=== PATIENT | female | born 1935 | race American Indian/Alaskan Native ===

== ENCOUNTER 2019-04-18 10:38 | Outpatient (CLI) | payer MEDICARE ==
--- NOTE | 2019-04-18 14:14 | Ultrasound Report ---
ULTRASOUND RENAL BILATERAL HISTORY: Left flank pain. TECHNIQUE: transabdominal ultrasound with color Doppler interrogation. FINDINGS: The right kidney measures 9.7 x 3.3 x 3.7cm. Right renal cortex: 1.3cm. The left kidney measures 10.2 x 4.0 x 4.9cm. Left renal cortex: 1.4cm. Scans of the kidneys show normal renal contours. There is normal central calyceal clustering and good preservation of the cortical thickness. There is no evidence of mass or hydronephrosis. The views of the bladder and the region of the ureters appear normal. IMPRESSION: Unremarkable renal ultrasound.
== END 2019-04-18 10:39 | disposition home or self-care (01) ==
LOC: US 10:38
PROVIDERS: ATTEND Internal Medicine Nephrology
DX: R10.9 Unspecified abdominal pain (principal); I10 Essential (primary) hypertension
CPT/HCPCS: 76770

== ENCOUNTER 2019-12-27 06:54 | Observation (INO) | payer MEDICARE ==
[2019-12-27 08:12] LABS: Basophils # (Auto) 0.1 K/mm3 (0.0-0.1); Basophils % (Auto) 1.2 % (0.0-1.8); Eosinophils # (Auto) 0.1 K/mm3 (0.0-0.4); Eosinophils % (Auto) 1.9 % (0.0-4.3); Hematocrit 40.6 % (30.3-42.9); Hemoglobin 13.3 gm/dl (10.1-14.3); Lymphocytes # (Auto) 1.1 K/mm3 (1.2-5.4); Lymphocytes % (Auto) 24.4 % (13.4-35.0); Mean Corpuscular HGB Conc 33 % (30-34); Mean Corpuscular Volume 75 fl (79-97); Monocytes # (Auto) 0.4 K/mm3 (0.0-0.8); Monocytes % (Auto) 8.3 % (0.0-7.3); Platelet Count 158 K/mm3 (140-440); Red Blood Count 5.41 M/mm3 (3.65-5.03)
[2019-12-27 08:23] LABS: INR 1.09 (0.87-1.13)
[2019-12-27 08:34] LABS: BUN/Creatinine Ratio 15; Blood Urea Nitrogen 12 mg/dL (7-17); Calcium 9.7 mg/dL (8.4-10.2); Hemolysis Index 8
[2019-12-27 08:56] LABS: Bacteria,Urine 1+ /HPF (Negative); Bilirubin,Urine NEG (Negative); Blood,Urine NEG (Negative); Color,Urine Yellow (Yellow); Protein,Urine <15 mg/dL mg/dL (Negative); Urobilinogen,Urine < 2.0 mg/dL (<2.0)
--- NOTE | 2019-12-27 10:15 | Emergency Department Report ---
ED General Adult HPI - General Chief complaint: Weakness Stated complaint: GENERAL WEAKNESS Time Seen by Provider: 12/27/19 09:26 Source: patient, EMS Mode of arrival: Stretcher Limitations: No Limitations - History of Present Illness Initial comments: Patient presents to the emergency department with a chief complaint of right facial numbness and tingling that started this morning. Patient states his symptoms started approximately 8:00 this morning and have now resolved. Patient denies chest pain, cyanosis, or headaches. Patient also denies facial droop, slurred speech -: Sudden Severity scale (0 -10): 0 Consistency: now resolved Improves with: none Worsens with: none Associated Symptoms: denies other symptoms Treatments Prior to Arrival: none - Related Data Home Medications Medication Instructions Recorded Confirmed Last Taken FLUoxetine [PROzac] 10 mg PO QDAY 03/27/16 03/27/16 Unknown risperiDONE [RisperDAL] 1 tab PO QHS 03/27/16 03/27/16 Unknown Allergies Allergy/AdvReac Type Severity Reaction Status Date / Time No Known Allergies Allergy Unverified 03/27/16 12:58 ED Review of Systems ROS: Stated complaint: GENERAL WEAKNESS Other details as noted in HPI Comment: All other systems reviewed and negative Constitutional: denies: chills, fever Eyes: denies: eye pain, eye discharge, vision change ENT: denies: ear pain, throat pain Respiratory: denies: cough, shortness of breath, wheezing Cardiovascular: denies: chest pain, palpitations Endocrine: no symptoms reported Gastrointestinal: denies: abdominal pain, nausea, diarrhea Genitourinary: denies: urgency, dysuria, discharge Musculoskeletal: denies: back pain, joint swelling, arthralgia Skin: denies: rash, lesions Neurological: numbness. denies: headache, weakness, paresthesias Psychiatric: denies: anxiety, depression Hematological/Lymphatic: denies: easy bleeding, easy bruising ED Past Medical Hx - Past Medical History Previous Medical History?: Yes Hx Hypertension: Yes Hx Psychiatric Treatment: Yes (Anxiety) - Surgical History Past Surgical History?: No - Social History Smoking Status: Never Smoker Substance Use Type: None - Medications Home Medications: Home Medications Medication Instructions Recorded Confirmed Last Taken Type FLUoxetine [PROzac] 10 mg PO QDAY 03/27/16 03/27/16 Unknown History risperiDONE [RisperDAL] 1 tab PO QHS 03/27/16 03/27/16 Unknown History ED Physical Exam - General Limitations: No Limitations General appearance: alert, in no apparent distress - Head Head exam: Present: atraumatic, normocephalic - Eye Eye exam: Present: normal appearance, PERRL, EOMI - ENT ENT exam: Present: mucous membranes moist - Neck Neck exam: Present: normal inspection - Respiratory Respiratory exam: Present: normal lung sounds bilaterally. Absent: respiratory distress - Cardiovascular Cardiovascular Exam: Present: regular rate, normal rhythm. Absent: systolic murmur, diastolic murmur, rubs, gallop - GI/Abdominal GI/Abdominal exam: Present: soft, normal bowel sounds. Absent: distended, tenderness - Extremities Exam Extremities exam: Present: normal inspection - Back Exam Back exam: Present: normal inspection - Neurological Exam Neurological exam: Present: alert, oriented X3, CN II-XII intact. Absent: motor sensory deficit - Psychiatric Psychiatric exam: Present: normal affect, normal mood - Skin Skin exam: Present: warm, dry, intact, normal color. Absent: rash ED Course Vital Signs 12/27/19 12/27/19 12/27/19 07:42 09:30 11:56 Temperature 98.9 F 98.4 F Pulse Rate 59 L 56 L 54 L Respiratory 16 16 16 Rate Blood Pressure 164/81 Blood Pressure 168/73 157/53 [Right] O2 Sat by Pulse 99 98 100 Oximetry 12/27/19 12/27/19 13:00 14:00 Temperature 98.8 F Pulse Rate 75 66 Respiratory 16 16 Rate Blood Pressure Blood Pressure 141/64 115/50 [Right] O2 Sat by Pulse 100 100 Oximetry ED Medical Decision Making - Lab Data Result diagrams: 12/27/19 07:54 12/27/19 07:54 Lab Results 12/27/19 12/27/19 12/27/19 Range/Units 07:54 07:54 07:54 WBC 4.7 (4.5-11.0) K/mm3 RBC 5.41 H (3.65-5.03) M/mm3 Hgb 13.3 (10.1-14.3) gm/dl Hct 40.6 (30.3-42.9) % MCV 75 L (79-97) fl MCH 25 L (28-32) pg MCHC 33 (30-34) % RDW 15.0 (13.2-15.2) % Plt Count 158 (140-440) K/mm3 Lymph % (Auto) 24.4 (13.4-35.0) % [place] % (Auto) 8.3 H (0.0-7.3) % Eos % (Auto) 1.9 (0.0-4.3) % Baso % (Auto) 1.2 (0.0-1.8) % Lymph # 1.1 L (1.2-5.4) K/mm3 [place] # 0.4 (0.0-0.8) K/mm3 Eos # 0.1 (0.0-0.4) K/mm3 Baso # 0.1 (0.0-0.1) K/mm3 Seg Neutrophils % 64.2 (40.0-70.0) % Seg Neutrophils # 3.0 (1.8-7.7) K/mm3 PT 14.2 (12.2-14.9) Sec. INR 1.09 (0.87-1.13) APTT (24.2-36.6) Sec. Thrombin Time (15.1-19.6) Sec. Sodium (137-145) mmol/L Potassium (3.6-5.0) mmol/L Chloride (98-107) mmol/L Carbon Dioxide (22-30) mmol/L Anion Gap mmol/L BUN (7-17) mg/dL Creatinine (0.7-1.2) mg/dL Estimated GFR ml/min BUN/Creatinine Ratio % Glucose (65-100) mg/dL POC Glucose 118 H (70-105) Calcium (8.4-10.2) mg/dL Troponin T (0.00-0.029) ng/mL Urine Color (Yellow) Urine Turbidity (Clear) Urine pH (5.0-7.0) Ur Specific [place] (1.003-1.030) Urine Protein (Negative) mg/dL Urine Glucose (UA) (Negative) mg/dL Urine Ketones (Negative) mg/dL Urine Blood (Negative) Urine Nitrite (Negative) Urine Bilirubin (Negative) Urine Urobilinogen (<2.0) mg/dL Ur Leukocyte Esterase (Negative) Urine WBC (Auto) (0.0-6.0) /HPF Urine RBC (Auto) (0.0-6.0) /HPF U Epithel Cells (Auto) (0-13.0) /HPF Urine Bacteria (Auto) (Negative) /HPF 12/27/19 12/27/19 12/27/19 Range/Units 07:54 07:55 07:55 WBC (4.5-11.0) K/mm3 RBC (3.65-5.03) M/mm3 Hgb (10.1-14.3) gm/dl Hct (30.3-42.9) % MCV (79-97) fl MCH (28-32) pg MCHC (30-34) % RDW (13.2-15.2) % Plt Count (140-440) K/mm3 Lymph % (Auto) (13.4-35.0) % [place] % (Auto) (0.0-7.3) % Eos % (Auto) (0.0-4.3) % Baso % (Auto) (0.0-1.8) % Lymph # (1.2-5.4) K/mm3 [place] # (0.0-0.8) K/mm3 Eos # (0.0-0.4) K/mm3 Baso # (0.0-0.1) K/mm3 Seg Neutrophils % (40.0-70.0) % Seg Neutrophils # (1.8-7.7) K/mm3 PT (12.2-14.9) Sec. INR (0.87-1.13) APTT 27.4 (24.2-36.6) Sec. Thrombin Time 16.1 (15.1-19.6) Sec. Sodium 141 (137-145) mmol/L Potassium 3.3 L (3.6-5.0) mmol/L Chloride 101.9 (98-107) mmol/L Carbon Dioxide 22 (22-30) mmol/L Anion Gap 20 mmol/L BUN 12 (7-17) mg/dL Creatinine 0.8 (0.7-1.2) mg/dL Estimated GFR > 60 ml/min BUN/Creatinine Ratio 15 % Glucose 132 H (65-100) mg/dL POC Glucose (70-105) Calcium 9.7 (8.4-10.2) mg/dL Troponin T < 0.010 (0.00-0.029) ng/mL Urine Color (Yellow) Urine Turbidity (Clear) Urine pH (5.0-7.0) Ur Specific [place] (1.003-1.030) Urine Protein (Negative) mg/dL Urine Glucose (UA) (Negative) mg/dL Urine Ketones (Negative) mg/dL Urine Blood (Negative) Urine Nitrite (Negative) Urine Bilirubin (Negative) Urine Urobilinogen (<2.0) mg/dL Ur Leukocyte Esterase (Negative) Urine WBC (Auto) (0.0-6.0) /HPF Urine RBC (Auto) (0.0-6.0) /HPF U Epithel Cells (Auto) (0-13.0) /HPF Urine Bacteria (Auto) (Negative) /HPF 12/27/19 Range/Units 08:12 WBC (4.5-11.0) K/mm3 RBC (3.65-5.03) M/mm3 Hgb (10.1-14.3) gm/dl Hct (30.3-42.9) % MCV (79-97) fl MCH (28-32) pg MCHC (30-34) % RDW (13.2-15.2) % Plt Count (140-440) K/mm3 Lymph % (Auto) (13.4-35.0) % [place] % (Auto) (0.0-7.3) % Eos % (Auto) (0.0-4.3) % Baso % (Auto) (0.0-1.8) % Lymph # (1.2-5.4) K/mm3 [place] # (0.0-0.8) K/mm3 Eos # (0.0-0.4) K/mm3 Baso # (0.0-0.1) K/mm3 Seg Neutrophils % (40.0-70.0) % Seg Neutrophils # (1.8-7.7) K/mm3 PT (12.2-14.9) Sec. INR (0.87-1.13) APTT (24.2-36.6) Sec. Thrombin Time (15.1-19.6) Sec. Sodium (137-145) mmol/L Potassium (3.6-5.0) mmol/L Chloride (98-107) mmol/L Carbon Dioxide (22-30) mmol/L Anion Gap mmol/L BUN (7-17) mg/dL Creatinine (0.7-1.2) mg/dL Estimated GFR ml/min BUN/Creatinine Ratio % Glucose (65-100) mg/dL POC Glucose (70-105) Calcium (8.4-10.2) mg/dL Troponin T (0.00-0.029) ng/mL Urine Color Yellow (Yellow) Urine Turbidity Clear (Clear) Urine pH 7.0 (5.0-7.0) Ur Specific [place] 1.009 (1.003-1.030) Urine Protein <15 mg/dl (Negative) mg/dL Urine Glucose (UA) Neg (Negative) mg/dL Urine Ketones Tr (Negative) mg/dL Urine Blood Neg (Negative) Urine Nitrite Neg (Negative) Urine Bilirubin Neg (Negative) Urine Urobilinogen < 2.0 (<2.0) mg/dL Ur Leukocyte Esterase Tr (Negative) Urine WBC (Auto) 2.0 (0.0-6.0) /HPF Urine RBC (Auto) 2.0 (0.0-6.0) /HPF U Epithel Cells (Auto) 1.0 (0-13.0) /HPF Urine Bacteria (Auto) 1+ (Negative) /HPF - Radiology Data Radiology results: report reviewed - Medical Decision Making Discussed results with patient and her family Critical care attestation.: If time is entered above; I have spent that time in minutes in the direct care of this critically ill patient, excluding procedure time. ED Disposition Clinical Impression: Right facial numbness Disposition: DC-09 OP ADMIT IP TO THIS HOSP Is pt being admited?: Yes Does the pt Need Aspirin: No Condition: Fair
--- NOTE | 2019-12-27 11:26 | XRay Report ---
CHEST 1 VIEW INDICATION: weakness. COMPARISON: None FINDINGS: Support devices: None. Heart: Within normal limits. Lungs/Pleura: No acute air space or interstitial disease. Calcified right hilar lymph nodes. Additional findings: None. IMPRESSION: 1. No acute findings. Signer Name: Danie Brown MD Signed: 12/27/2019 11:21 AM Workstation Name: [id number]
--- NOTE | 2019-12-27 11:44 | Cat Scan Report ---
CT BRAIN: 12/27/2019 INDICATION / CLINICAL INFORMATION: Headache, generalized weakness. COMPARISON: None available. FINDINGS: BRAIN/INTRACRANIAL STRUCTURES: Unenhanced CT images of the brain demonstrate no evidence of acute int racranial abnormality. Ventricles and sulci are prominent in size, consistent with age-related atrophic change. Some mild chronic white matter hypoattenuation is present in the cerebral hemispheric white matter. There is no CT evidence of large vessel territory ischemic injury, hemorrhage, or mass. There are no abnormal extra-axial fluid collections. EXTRACRANIAL STRUCTURES: Unremarkable. IMPRESSION: No acute abnormality. All CT scans at this location are performed using dose reduction to ALARA by means of automated expos ure control. Signer Name: Liban Cutler MD Signed: 12/27/2019 11:40 AM Workstation Name: [id number]
[2019-12-27] MEDS ORDERED: ASPIRIN 81 MG TAB CHEW PO ONE (12:38)
--- NOTE | 2019-12-27 19:44 | History and Physical Report ---
History of Present Illness Date of examination: 12/27/19 Date of admission: 12/27/19 14:13 Chief complaint: Right side facial numbness since 8 AM--lasted for 2 hours History of present illness: 84-year-old female with history of hypertension, depression and anxiety disorder presents to the ER with chief complaint of right facial numbness and tingling which started this morning around 8 AM. Lasted for couple of hours and resolved. No weakness on the right side. No chest pain. This is the first episode. Never had similar episodes in the past. No exacerbating or relieving factors. Patient able to walk and talk normally. No nasal regurgitation of fluids or diplopia. No unsteadiness while walking. Past Medical History Previous Medical History?: Yes Hypertension: Yes Psychiatric Treatment: Yes (Anxiety) Surgical History Past Surgical History?: No Social History Smoking Status: Never Smoker Substance Use Type: None Family history Htn - Medications Home Medications: Home Medications Medication Instructions Recorded Confirmed Last Taken Type FLUoxetine [PROzac] 10 mg PO QDAY 03/27/16 03/27/16 Unknown History risperiDONE [RisperDAL] 1 tab PO QHS 03/27/16 03/27/16 Unknown History Review of Systems ROS: Stated complaint: GENERAL WEAKNESS Other details as noted in HPI Comment: All other systems reviewed and negative Constitutional: denies: chills, fever Eyes: denies: eye pain, eye discharge, vision change ENT: denies: ear pain, throat pain Respiratory: denies: cough, shortness of breath, wheezing Cardiovascular: denies: chest pain, palpitations Endocrine: no symptoms reported Gastrointestinal: denies: abdominal pain, nausea, diarrhea Genitourinary: denies: urgency, dysuria, discharge Musculoskeletal: denies: back pain, joint swelling, arthralgia Skin: denies: rash, lesions Neurological: numbness. Right-sided facial numbness, denies: headache, weakness, Psychiatric: denies: anxiety, depression Hematological/Lymphatic: denies: easy bleeding, easy bruising Medications and Allergies Allergies Allergy/AdvReac Type Severity Reaction Status Date / Time No Known Allergies Allergy Unverified 03/27/16 12:58 Home Medications Medication Instructions Recorded Confirmed Last Taken Type FLUoxetine [PROzac] 10 mg PO QDAY 03/27/16 03/27/16 Unknown History risperiDONE [RisperDAL] 1 tab PO QHS 03/27/16 03/27/16 Unknown History Exam - Constitutional Vitals: Temp Pulse Resp BP Pulse Ox 98.0 F 59 L 18 157/60 99 12/27/19 18:28 12/27/19 18:28 12/27/19 18:28 12/27/19 18:28 12/27/19 18:28 General appearance: Present: no acute distress, well-nourished - EENT Eyes: Present: PERRL ENT: hearing intact, clear oral mucosa - Neck Neck: Present: supple, normal ROM - Respiratory Respiratory effort: normal Respiratory: bilateral: CTA - Cardiovascular Heart rate: 56 Rhythm: regular Heart Sounds: Present: S1 & S2. Absent: rub, click - Extremities Extremities: no ischemia, pulses intact, pulses symmetrical, No edema Peripheral Pulses: within normal limits - Abdominal General gastrointestinal: Present: soft, non-tender, non-distended, normal bowel sounds Female genitourinary: Present: normal - Integumentary Integumentary: Present: clear, warm, dry - Musculoskeletal Musculoskeletal: gait normal, strength equal bilaterally - Psychiatric Psychiatric: appropriate mood/affect, intact judgment & insight - Neurologic Neurologic: CNII-XII intact, moves all extremities - Allied Health Allied health notes reviewed: nursing, case management LISSY score - Lissy Score Age > 65: (1) Yes Aspirin use within the Past 7 Days: (1) Yes Results - Labs CBC & Chem 7: 12/27/19 07:54 12/27/19 07:54 Labs: Laboratory Last Values WBC 4.7 K/mm3 (4.5-11.0) 12/27/19 07:54 RBC 5.41 M/mm3 (3.65-5.03) H 12/27/19 07:54 Hgb 13.3 gm/dl (10.1-14.3) 12/27/19 07:54 Hct 40.6 % (30.3-42.9) 12/27/19 07:54 MCV 75 fl (79-97) L 12/27/19 07:54 MCH 25 pg (28-32) L 12/27/19 07:54 MCHC 33 % (30-34) 12/27/19 07:54 RDW 15.0 % (13.2-15.2) 12/27/19 07:54 Plt Count 158 K/mm3 (140-440) 12/27/19 07:54 Lymph % (Auto) 24.4 % (13.4-35.0) 12/27/19 07:54 [place] % (Auto) 8.3 % (0.0-7.3) H 12/27/19 07:54 Eos % (Auto) 1.9 % (0.0-4.3) 12/27/19 07:54 Baso % (Auto) 1.2 % (0.0-1.8) 12/27/19 07:54 Lymph # 1.1 K/mm3 (1.2-5.4) L 12/27/19 07:54 [place] # 0.4 K/mm3 (0.0-0.8) 12/27/19 07:54 Eos # 0.1 K/mm3 (0.0-0.4) 12/27/19 07:54 Baso # 0.1 K/mm3 (0.0-0.1) 12/27/19 07:54 Seg Neutrophils % 64.2 % (40.0-70.0) 12/27/19 07:54 Seg Neutrophils # 3.0 K/mm3 (1.8-7.7) 12/27/19 07:54 PT 14.2 Sec. (12.2-14.9) 12/27/19 07:54 INR 1.09 (0.87-1.13) 12/27/19 07:54 APTT 27.4 Sec. (24.2-36.6) 12/27/19 07:55 Thrombin Time 16.1 Sec. (15.1-19.6) 12/27/19 07:55 Sodium 141 mmol/L (137-145) 12/27/19 07:54 Potassium 3.3 mmol/L (3.6-5.0) L 12/27/19 07:54 Chloride 101.9 mmol/L (98-107) 12/27/19 07:54 Carbon Dioxide 22 mmol/L (22-30) 12/27/19 07:54 Anion Gap 20 mmol/L 12/27/19 07:54 BUN 12 mg/dL (7-17) 12/27/19 07:54 Creatinine 0.8 mg/dL (0.7-1.2) 12/27/19 07:54 Estimated GFR > 60 ml/min 12/27/19 07:54 BUN/Creatinine Ratio 15 % 12/27/19 07:54 Glucose 132 mg/dL (65-100) H 12/27/19 07:54 POC Glucose 118 (70-105) H 12/27/19 07:54 Calcium 9.7 mg/dL (8.4-10.2) 12/27/19 07:54 Troponin T < 0.010 ng/mL (0.00-0.029) 12/27/19 07:54 Urine Color Yellow (Yellow) 12/27/19 08:12 Urine Turbidity Clear (Clear) 12/27/19 08:12 Urine pH 7.0 (5.0-7.0) 12/27/19 08:12 Ur Specific [place] 1.009 (1.003-1.030) 12/27/19 08:12 Urine Protein <15 mg/dl mg/dL (Negative) 12/27/19 08:12 Urine Glucose (UA) Neg mg/dL (Negative) 12/27/19 08:12 Urine Ketones Tr mg/dL (Negative) 12/27/19 08:12 Urine Blood Neg (Negative) 12/27/19 08:12 Urine Nitrite Neg (Negative) 12/27/19 08:12 Urine Bilirubin Neg (Negative) 12/27/19 08:12 Urine Urobilinogen < 2.0 mg/dL (<2.0) 12/27/19 08:12 Ur Leukocyte Esterase Tr (Negative) 12/27/19 08:12 Urine WBC (Auto) 2.0 /HPF (0.0-6.0) 12/27/19 08:12 Urine RBC (Auto) 2.0 /HPF (0.0-6.0) 12/27/19 08:12 U Epithel Cells (Auto) 1.0 /HPF (0-13.0) 12/27/19 08:12 Urine Bacteria (Auto) 1+ /HPF (Negative) 12/27/19 08:12 Short CBC 12/27/19 Range/Units 07:54 WBC 4.7 (4.5-11.0) K/mm3 Hgb 13.3 (10.1-14.3) gm/dl Hct 40.6 (30.3-42.9) % Plt Count 158 (140-440) K/mm3 BMP 12/27/19 07:54 Sodium 141 Potassium 3.3 L Chloride 101.9 Carbon Dioxide 22 BUN 12 Creatinine 0.8 Glucose 132 H Calcium 9.7 Cardiac Enzymes 12/27/19 Range/Units 07:54 Troponin T < 0.010 (0.00-0.029) ng/mL Urine 12/27/19 Range/Units 08:12 Urine Color Yellow (Yellow) Urine pH 7.0 (5.0-7.0) Ur Specific [place] 1.009 (1.003-1.030) Urine Protein <15 mg/dl (Negative) mg/dL Urine Glucose (UA) Neg (Negative) mg/dL - Imaging and Cardiology EKG: report reviewed Chest x-ray: report reviewed (No acute findings) CT Scan - head: report reviewed (No acute findings) Assessment and Plan Advance Directives: Yes (Full code) VTE prophylaxis?: Chemical Plan of care discussed with patient/family: Yes - Patient Problems (1) TIA (transient ischemic attack) Current Visit: Yes Status: Acute Plan to address problem: Patient being admitted for transient ischemic attack. Given her age of 84 there is a possibility of evolving stroke. MRI brain requested Carotid duplex scan requested Neurology consult requested Admitted in observation status (2) Hypokalemia Current Visit: Yes Status: Acute Plan to address problem: Supplemented (3) Hypertension Current Visit: Yes Status: Chronic Qualifiers: Hypertension type: essential hypertension Qualified Code(s): I10 - Essential (primary) hypertension Plan to address problem: Losartan 12.5 mg p.o. daily (4) Depression Current Visit: Yes Status: Chronic Qualifiers: Depression Type: unspecified Qualified Code(s): F32.9 - Major depressive disorder, single episode, unspecified Plan to address problem: Continue fluoxetine and Risperdal (5) DVT prophylaxis Current Visit: Yes Status: Acute Plan to address problem: On heparin 5000 every 12 and GI prophylaxis (6) Advance care planning Current Visit: Yes Status: Acute Plan to address problem: Patient is full code. DNR discussed (7) Discharge planning issues Current Visit: Yes Status: Acute Plan to address problem: Patient is admitted in observation status May be discharged tomorrow if MRI of the brain is negative
[2019-12-27] MEDS ORDERED: ONDANSETRON 4 MG/2 ML INJ IV PRN (19:58)
[2019-12-27] MEDS ORDERED: METOCLOPRAMIDE 10 MG/2 ML INJ IV PRN (19:59)
[2019-12-27] MEDS ORDERED: HYDROmorphone 1 MG/1 ML INJ IV PRN (19:59)
[2019-12-27] MEDS ORDERED: SODIUM CHLORIDE 0.9% 1000 ML 1,000 ML IV SCH (20:00)
[2019-12-27] MEDS ORDERED: POTASSIUM CHLORIDE ER 20 MEQ TAB PO ONE (20:07)
[2019-12-27] MEDS: ASPIRIN EC 325 MG TAB PO SCH (21:12)
[2019-12-27] MEDS: risperiDONE 0.25 MG TAB PO SCH (21:13)
[2019-12-27] MEDS: oxyCODONE /ACETAMINOPHEN 5-325MG TAB PO PRN (21:14)
[2019-12-27] MEDS: HEPARIN 5,000 UNIT/1 ML VIAL SUB-Q SCH (21:15)
[2019-12-28] MEDS: FLUoxetine 10 MG TAB PO SCH ×2 (00:50→11:34)
[2019-12-28 06:25] LABS: Basophils # (Auto) 0.1 K/mm3 (0.0-0.1); Eosinophils # (Auto) 0.1 K/mm3 (0.0-0.4); Eosinophils % (Auto) 2.9 % (0.0-4.3); Hematocrit 38.9 % (30.3-42.9); Hemoglobin 12.6 gm/dl (10.1-14.3); Lymphocytes % (Auto) 39.9 % (13.4-35.0); Mean Corpuscular HGB Conc 33 % (30-34); Mean Corpuscular Volume 75 fl (79-97); Monocytes # (Auto) 0.4 K/mm3 (0.0-0.8); Monocytes % (Auto) 8.6 % (0.0-7.3); Platelet Count 152 K/mm3 (140-440); Red Blood Count 5.19 M/mm3 (3.65-5.03); Red Cell Distribution Width 15.1 % (13.2-15.2)
[2019-12-28 06:52] LABS: Alanine Aminotransferase 14 units/L (7-56); Albumin 3.8 g/dL (3.9-5); BUN/Creatinine Ratio 14; Blood Urea Nitrogen 11 mg/dL (7-17); Calcium 9.3 mg/dL (8.4-10.2); Hemolysis Index 7
[2019-12-28] MEDS: ASPIRIN EC 325 MG TAB PO SCH (11:34)
[2019-12-28] MEDS: HEPARIN 5,000 UNIT/1 ML VIAL SUB-Q SCH ×2 (11:35→22:32)
--- NOTE | 2019-12-28 11:43 | Magnetic Resonance Report ---
MRI BRAIN WITHOUT CONTRAST INDICATION / CLINICAL INFORMATION: TIA. Right-sided facial TECHNIQUE: Multiplanar, multisequence MR images of the brain were obtained. COMPARISON: CT head 12/27/2019 FINDINGS: BRAIN / INTRACRANIAL CONTENTS: Ventricles and cortical sulci are normal in size and configuration. Th ere is remarkably little in the way of parenchymal volume loss given the patient's age of 84 years. P eriventricular and deep white matter hyperintensities noted consistent with age-related microvascular ischemic changes. Dilated perivascular spaces are noted in the bilateral ganglia capsular distributi on. There is no mass effect. No evidence of intracranial hemorrhage or extra-axial fluid collection i s seen. There is no indication of remote cortical infarction. Diffusion weighted scans are negative. There is no indication of acute ischemic injury. The brainstem and cerebellum have an unremarkable appearance. CRANIOCERVICAL JUNCTION: No abnormalities are identified at the craniocervical junction. VASCULAR FLOW-VOIDS: Normal flow-voids are present within the major intracranial vessels. ORBITS: The orbits have an unremarkable appearance. SINUSES / MASTOIDS: There is no indication of inflammatory disease in the paranasal sinuses or mastoi d air cells. IMPRESSION: 1. Age-appropriate microvascular ischemic changes. 2. Otherwise negative MRI brain without contrast. Signer Name: Sanjay eHrrera MD Signed: 12/28/2019 11:38 AM Workstation Name: [id number]
--- NOTE | 2019-12-28 18:01 | Progress Note ---
Assessment and Plan Assessment and plan: Transient ischemic attack Patient placed on observation MRI brain negative for acute stroke Carotid duplex scan requested but she refused Neurology consulted requested Started on Aspirin Hypokalemia Supplemented recheck in am Hypertension Losartan 12.5 mg p.o. daily Depression Continue fluoxetine and Risperdal DVT prophylaxis On heparin 5000 every 12 and GI prophylaxis Advance care planning Patient is full code. History Interval history: Right faccial numness, now resolved no headache Hospitalist Physical - Physical exam Narrative exam: GEN: Not in acute distress, sitting up in bed, HEENT: Normocephalic, atraumatic, Neck: supple, No JVD Lungs: Clear to auscultation bilaterally, no wheeze, heart;S1 and S2 reg, no murmurs Abd:soft, non tender, non distended, normal bowel sounds Ext: No edema, no clubbing, no cyanosis Neuro: AAO X 3, no facial asymmetry, moves all ext, - Constitutional Vitals: Temp Pulse Resp BP Pulse Ox 98.9 F 60 20 152/70 100 12/28/19 13:02 12/28/19 13:02 12/28/19 13:02 12/28/19 13:02 12/28/19 13:02 General appearance: Present: no acute distress, well-nourished LISSY score - Lissy Score Age > 65: (1) Yes Aspirin use within the Past 7 Days: (1) Yes Results - Labs CBC & Chem 7: 12/28/19 05:48 12/28/19 05:48 Labs: Laboratory Last Values WBC 5.0 K/mm3 (4.5-11.0) 12/28/19 05:48 RBC 5.19 M/mm3 (3.65-5.03) H 12/28/19 05:48 Hgb 12.6 gm/dl (10.1-14.3) 12/28/19 05:48 Hct 38.9 % (30.3-42.9) 12/28/19 05:48 MCV 75 fl (79-97) L 12/28/19 05:48 MCH 24 pg (28-32) L 12/28/19 05:48 MCHC 33 % (30-34) 12/28/19 05:48 RDW 15.1 % (13.2-15.2) 12/28/19 05:48 Plt Count 152 K/mm3 (140-440) 12/28/19 05:48 Lymph % (Auto) 39.9 % (13.4-35.0) H 12/28/19 05:48 [place] % (Auto) 8.6 % (0.0-7.3) H 12/28/19 05:48 Eos % (Auto) 2.9 % (0.0-4.3) 12/28/19 05:48 Baso % (Auto) 1.0 % (0.0-1.8) 12/28/19 05:48 Lymph # 2.0 K/mm3 (1.2-5.4) 12/28/19 05:48 [place] # 0.4 K/mm3 (0.0-0.8) 12/28/19 05:48 Eos # 0.1 K/mm3 (0.0-0.4) 12/28/19 05:48 Baso # 0.1 K/mm3 (0.0-0.1) 12/28/19 05:48 Seg Neutrophils % 47.6 % (40.0-70.0) 12/28/19 05:48 Seg Neutrophils # 2.4 K/mm3 (1.8-7.7) 12/28/19 05:48 PT 14.2 Sec. (12.2-14.9) 12/27/19 07:54 INR 1.09 (0.87-1.13) 12/27/19 07:54 APTT 27.4 Sec. (24.2-36.6) 12/27/19 07:55 Thrombin Time 16.1 Sec. (15.1-19.6) 12/27/19 07:55 Sodium 140 mmol/L (137-145) 12/28/19 05:48 Potassium 3.4 mmol/L (3.6-5.0) L 12/28/19 05:48 Chloride 103.7 mmol/L (98-107) 12/28/19 05:48 Carbon Dioxide 21 mmol/L (22-30) L 12/28/19 05:48 Anion Gap 19 mmol/L 12/28/19 05:48 BUN 11 mg/dL (7-17) 12/28/19 05:48 Creatinine 0.8 mg/dL (0.7-1.2) 12/28/19 05:48 Estimated GFR > 60 ml/min 12/28/19 05:48 BUN/Creatinine Ratio 14 % 12/28/19 05:48 Glucose 129 mg/dL (65-100) H 12/28/19 05:48 POC Glucose 118 (70-105) H 12/27/19 07:54 Hemoglobin A1c 6.8 % (4-6) H 12/28/19 05:48 Calcium 9.3 mg/dL (8.4-10.2) 12/28/19 05:48 Total Bilirubin 0.50 mg/dL (0.1-1.2) 12/28/19 05:48 AST 20 units/L (5-40) 12/28/19 05:48 ALT 14 units/L (7-56) 12/28/19 05:48 Alkaline Phosphatase 54 units/L (35-129) 12/28/19 05:48 Troponin T < 0.010 ng/mL (0.00-0.029) 12/27/19 07:54 Total Protein 6.9 g/dL (6.3-8.2) 12/28/19 05:48 Albumin 3.8 g/dL (3.9-5) L 12/28/19 05:48 Albumin/Globulin Ratio 1.2 % 12/28/19 05:48 Urine Color Yellow (Yellow) 12/27/19 08:12 Urine Turbidity Clear (Clear) 12/27/19 08:12 Urine pH 7.0 (5.0-7.0) 12/27/19 08:12 Ur Specific [place] 1.009 (1.003-1.030) 12/27/19 08:12 Urine Protein <15 mg/dl mg/dL (Negative) 12/27/19 08:12 Urine Glucose (UA) Neg mg/dL (Negative) 12/27/19 08:12 Urine Ketones Tr mg/dL (Negative) 12/27/19 08:12 Urine Blood Neg (Negative) 12/27/19 08:12 Urine Nitrite Neg (Negative) 12/27/19 08:12 Urine Bilirubin Neg (Negative) 12/27/19 08:12 Urine Urobilinogen < 2.0 mg/dL (<2.0) 12/27/19 08:12 Ur Leukocyte Esterase Tr (Negative) 12/27/19 08:12 Urine WBC (Auto) 2.0 /HPF (0.0-6.0) 12/27/19 08:12 Urine RBC (Auto) 2.0 /HPF (0.0-6.0) 12/27/19 08:12 U Epithel Cells (Auto) 1.0 /HPF (0-13.0) 12/27/19 08:12 Urine Bacteria (Auto) 1+ /HPF (Negative) 12/27/19 08:12 Active Medications - Current Medications Current Medications: Generic Name Dose Route Start Last Admin Trade Name Freq PRN Reason Stop Dose Admin Acetaminophen 650 mg 12/27/19 19:58 Tylenol PO Q4H PRN Pain MILD(1-3)/Fever >100.5/FELIX Aspirin 325 mg 12/27/19 21:00 12/28/19 11:34 Ecotrin PO 325 mg QDAY MAVERICK Administration Atorvastatin Calcium 20 mg 12/27/19 22:00 12/27/19 21:13 Lipitor PO 20 mg QHS MAVERICK Administration Fluoxetine HCl 10 mg 12/27/19 21:00 12/28/19 11:34 Prozac PO 10 mg QDAY MAVERICK Administration Heparin Sodium (Porcine) 5,000 unit 12/27/19 22:00 12/28/19 11:35 Heparin SUB-Q 5,000 unit Q12HR MAVERICK Administration Hydromorphone HCl 0.5 mg 12/27/19 19:59 Dilaudid IV Q3H PRN Pain , Severe (7-10) Metoclopramide HCl 10 mg 12/27/19 19:59 Reglan IV Q6H PRN Nausea And Vomiting Ondansetron HCl 4 mg 12/27/19 19:58 Zofran IV Q8H PRN Nausea And Vomiting Oxycodone/Acetaminophen 1 tab 12/27/19 19:59 12/27/19 21:14 Percocet 5/325 PO 1 tab Q6H PRN Administration Pain, Moderate (4-6) Risperidone 0.25 mg 12/27/19 22:00 12/27/19 21:13 Risperdal PO 0.25 mg QHS MAVERICK Administration Sodium Chloride 10 ml 12/27/19 22:00 12/28/19 11:34 Sodium Chloride Flush Syringe 10 Ml IV 10 ml BID MAVERICK Administration Sodium Chloride 10 ml 12/27/19 19:58 Sodium Chloride Flush Syringe 10 Ml IV PRN PRN LINE FLUSH
--- NOTE | 2019-12-28 19:44 | Consultation ---
History of Present Illness Consult date: 12/28/19 Reason for Consult: right facial numbness Chief complaint: right facial numbness History of present illness: Patient is an 84-year-old woman with a history of hypertension, anxiety, depression. Yesterday morning, she awoke with symptoms of right facial numbness and paresthesias. Patient then called her daughter, as well as her son, who lives with her at home. EMS arrived, and patient was taken to [facility] for further e valuation. 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 On questioning, the patient states that she is not certain if she had the symptoms, and feels it may have been part of a dream, as she has been sleep deprived recently. However, patient states it is possible she could have had symptoms which resolved. She states that she has recently been dealing with significant anziety and depression. Past History Past Medical History: other (history of hypertension, anxiety, depression.) Social history: lives with family Family history: hypertension Medications and Allergies Allergies Allergy/AdvReac Type Severity Reaction Status Date / Time No Known Allergies Allergy Unverified 03/27/16 12:58 Home Medications Medication Instructions Recorded Confirmed Last Taken Type FLUoxetine [PROzac] 20 mg PO QDAY 03/27/16 12/28/19 Unknown History Ascorbic Acid [Vitamin C] 500 mg PO QDAY 12/28/19 12/28/19 Unknown History Biotin [Biotin 1] 1 mg PO DAILY 12/28/19 12/28/19 Unknown History Calcium Carbonate/Vitamin D3 1 tab PO DAILY 12/28/19 12/28/19 Unknown History [Calcium 600-Vit D3 400 Tablet] Diclofenac 1% [Diclofenac 1% 100 gm TP QID 12/28/19 12/28/19 Unknown History topical gel] Latanoprost 0.005% 1 drop OU HS 12/28/19 12/28/19 Unknown History Linaclotide [Linzess] 145 mcg PO QDAY 12/28/19 12/28/19 Unknown History Magnesium 250 mg PO DAILY 12/28/19 12/28/19 Unknown History Multivitamin Tab W-MINERAL 1 each PO QD 12/28/19 12/28/19 Unknown History [Multiple Vitamin/Mineral (Theragran M)] NIFEdipine [Procardia Xl] 30 mg PO DAILY 12/28/19 12/28/19 Unknown History [place]-3 Fatty Acids/Fish Oil [Fish 1,000 mg PO DAILY 12/28/19 12/28/19 Unknown History Oil] Oseltamivir [Tamiflu] 75 mg PO BID 12/28/19 12/28/19 Unknown History Triamterene/Hydrochlorothiazid 1 cap PO DAILY 12/28/19 12/28/19 Unknown History [Triamterene-Hctz 37.5-25 mg Cp] Vit B Comp/C/Folic/Iron/Vit E 1 each PO DAILY 12/28/19 12/28/19 Unknown History [Vitamin B Complex Tablet] Active Meds: Active Medications Acetaminophen (Tylenol) 650 mg PO Q4H PRN PRN Reason: Pain MILD(1-3)/Fever >100.5/FELIX Aspirin (Ecotrin) 325 mg PO QDAY [facility] Last Admin: 12/28/19 11:34 Dose: 325 mg Documented by: Atorvastatin Calcium (Lipitor) 20 mg PO QHS [facility] Last Admin: 12/27/19 21:13 Dose: 20 mg Documented by: Fluoxetine HCl (Prozac) 10 mg PO QDAY [facility] Last Admin: 12/28/19 11:34 Dose: 10 mg Documented by: Heparin Sodium (Porcine) (Heparin) 5,000 unit SUB-Q Q12HR [facility] Last Admin: 12/28/19 11:35 Dose: 5,000 unit Documented by: Hydromorphone HCl (Dilaudid) 0.5 mg IV Q3H PRN PRN Reason: Pain , Severe (7-10) Metoclopramide HCl (Reglan) 10 mg IV Q6H PRN PRN Reason: Nausea And Vomiting Ondansetron HCl (Zofran) 4 mg IV Q8H PRN PRN Reason: Nausea And Vomiting Oxycodone/Acetaminophen (Percocet 5/325) 1 tab PO Q6H PRN PRN Reason: Pain, Moderate (4-6) Last Admin: 12/27/19 21:14 Dose: 1 tab Documented by: Risperidone (Risperdal) 0.25 mg PO QHS [facility] Last Admin: 12/27/19 21:13 Dose: 0.25 mg Documented by: Sodium Chloride (Sodium Chloride Flush Syringe 10 Ml) 10 ml IV BID [facility] Last Admin: 12/28/19 11:34 Dose: 10 ml Documented by: Sodium Chloride (Sodium Chloride Flush Syringe 10 Ml) 10 ml IV PRN PRN PRN Reason: LINE FLUSH Review of Systems All systems: negative Neurological: numbness Psychiatric: anxiety, sleep disturbances Physical Examination - Vital Signs Vital Signs: Vital Signs Temp Pulse Resp BP Pulse Ox 98.9 F 59 L 16 164/81 99 12/27/19 07:42 12/27/19 07:42 12/27/19 07:42 12/27/19 07:42 12/27/19 07:42 - Physical Exam Narrative exam: Patient is alert, awake, oriented x4, follows complex commands. PERRL, EOMI, VFF, no facial weakness noted, tongue midline, b/l intact to LT. No dysarthria or aphasia noted. 5/5 strength in all extremities. B/l intact to LT. B/l intact to FTN and HTS. 2+ reflexes throughout. - Constitutional General appearance: comfortable - EENT EENT: Present: ATNC, PERRL, mucous membranes moist, hearing intact, vision intact - Respiratory Respiratory: Present: lungs clear, normal breath sounds - Cardiovascular Cardiovascular: Present: regular rate, normal S1, normal S2 Extremities: Present: no clubbing, cyanosis, no inflammation - Gastrointestinal Gastrointestinal: Present: normoactive bowel sounds, soft, non-tender - Integumentary Integumentary: Present: normal - Musculoskeletal Musculoskeletal: Present: no fluid collection, no pain - Psychiatric Psychiatric: Present: mood/affect appropriate - Level of Consciousness 1a. Level of Consciousness: alert/keenly responsive - LOC Questions 1b. LOC Questions: answers both correctly - LOC Command 1c. LOC Commands: performs tasks correctly - Best Gaze 2. Best Gaze: normal - Visual 3. Visual: no visual loss - Facial Palsy 4. Facial Palsy: normal symmetrical movement - Motor Arm 5a. Motor Arm Left: no drift 5b. Motor Arm Right: no drift - Motor Leg 6a. Motor Leg Left: no drift 6b. Motor Leg Right: no drift - Limb Ataxia 7. Limb Ataxia: absent - Sensory 8. Sensory: normal - Best Language 9. Best Language: no aphasia - Dysarthria 10. Dysarthria: normal - Extinction and Inattention 11. Extinction/Inattention: no abnormality - Scoring Total Score: 0 Stroke Severity: No Stroke Symptoms Results - Laboratory Findings CBC and BMP: 12/28/19 05:48 12/28/19 05:48 Abnormal Lab Findings: Abnormal Labs 12/27/19 12/27/19 12/27/19 07:54 07:54 07:54 RBC 5.41 H MCV 75 L MCH 25 L Lymph % (Auto) [place] % (Auto) 8.3 H Lymph # 1.1 L Potassium 3.3 L Carbon Dioxide Glucose 132 H POC Glucose 118 H Hemoglobin A1c Albumin 12/28/19 12/28/19 12/28/19 05:48 05:48 05:48 RBC 5.19 H MCV 75 L MCH 24 L Lymph % (Auto) 39.9 H [place] % (Auto) 8.6 H Lymph # Potassium 3.4 L Carbon Dioxide 21 L Glucose 129 H POC Glucose Hemoglobin A1c 6.8 H Albumin 3.8 L Assessment and Plan Patient is an 84-year-old woman with a history of hypertension, anxiety, depression, who p/w right facial numbness which resolved. According to the patient's clinical findings, it is likely that she has had a TIA. Of note, patient also has significant anxiety and depression, which have caused sleep deprivation recently. Plan: 1. TIA: - MRI Brain: no acute abnormality - CT head: no acute abnormality - Echo: pending - Check CTA head/neck - Cont. ASA - Cont. statin - PT/OT/ST not indicated as patient's symptoms have resolved - DVT Ppx: recommend lovenox 2. Hypertension: - Recommend BP target of normotension, as MRI is unremarkable and patient no longer has any deficits 3. Anxiety/Depresison: - Recommend outpatient follow up with primary psychiatrist. Thank you for allowing me to take part in the care of this patient. Ayaz Cuevas MD Neurology
[2019-12-28] MEDS: risperiDONE 0.25 MG TAB PO SCH (22:31)
[2019-12-29] MEDS ORDERED: hydrALAZINE 20 MG/1 ML INJ IV ONE ×2 (02:59)
[2019-12-29] MEDS: ACETAMINOPHEN 325 MG TAB PO PRN ×2 (04:00→08:13)
--- NOTE | 2019-12-29 07:52 | Event Note ---
Date: 12/28/19 I later re-evaluated patient together with Dr. Cuevas, Neurology. Dr. Cuevas wants CTA Head and Neck. Patient not stable to go home.
[2019-12-29] MEDS ORDERED: LOSARTAN 25 MG TAB PO SCH (10:00)
[2019-12-29] MEDS: HEPARIN 5,000 UNIT/1 ML VIAL SUB-Q SCH (10:42)
[2019-12-29] MEDS: ASPIRIN EC 325 MG TAB PO SCH (10:43)
[2019-12-29] MEDS: FLUoxetine 10 MG TAB PO SCH (10:43)
[2019-12-29] MEDS: oxyCODONE /ACETAMINOPHEN 5-325MG TAB PO PRN (10:53)
--- NOTE | 2019-12-29 11:21 | Progress Note ---
Assessment and Plan Patient is an 84-year-old woman with a history of hypertension, anxiety, depression, who p/w right facial numbness which resolved. According to the patient's clinical findings, it is likely that she has had a TIA. Of note, patient also has significant anxiety and depression, which have caused sleep deprivation recently. Plan: 1. TIA: - MRI Brain: no acute abnormality - CT head: no acute abnormality - Echo: EF 50-55%, LA normal size, bubble study negative. - CTA head/neck- no significant stenosis noted. Final report pending. - Cont. ASA - Cont. statin - PT/OT/ST not indicated as patient's symptoms have resolved - DVT Ppx: recommend lovenox - Recommend f/u outpatient with neurology in 4 weeks. 2. Hypertension: - Recommend BP target of normotension, as MRI is unremarkable and patient no longer has any deficits 3. Anxiety/Depresison: - Recommend outpatient follow up with primary psychiatrist. Thank you for allowing me to take part in the care of this patient. Ayaz Cuevas MD Neurology Subjective Date of service: 12/29/19 Principal diagnosis: TIA Interval history: No acute events overnight. Objective - Exam Narrative Exam: Patient is alert, awake, oriented x4, follows complex commands. PERRL, EOMI, VFF, no facial weakness noted, tongue midline, b/l intact to LT. No dysarthria or aphasia noted. 5/5 strength in all extremities. B/l intact to LT. B/l intact to FTN and HTS. 2+ reflexes throughout. - Vital Sign Vital Signs - 12hr 12/29/19 12/29/19 12/29/19 00:46 02:30 03:12 Temperature 98.4 F Pulse Rate 57 L 99 H 99 H Respiratory 18 Rate Respiratory Rate [Head] Blood Pressure 194/90 194/90 O2 Sat by Pulse 100 Oximetry 12/29/19 12/29/19 12/29/19 04:00 05:00 06:09 Temperature Pulse Rate 65 Respiratory 20 20 20 Rate Respiratory 20 Rate [Head] Blood Pressure 158/66 O2 Sat by Pulse 97 Oximetry 12/29/19 12/29/19 07:35 10:43 Temperature 98.7 F Pulse Rate 66 60 Respiratory 18 Rate Respiratory Rate [Head] Blood Pressure 170/71 170/71 O2 Sat by Pulse 98 Oximetry - General Apperance Constitutional: comfortable - EENT EENT: ATNC, PERRL, mucous membranes moist, hearing intact, vision intact - Respiratory Respiratory: lungs clear, normal breath sounds - Cardiovascular Cardiovascular: regular rate, normal S1, normal S2 Extremities: no clubbing, cyanosis, no inflammation - Gastrointestinal Gastrointestinal: normoactive bowel sounds, soft, non-tender - Integumentary Integumentary: normal - Musculoskeletal Musculoskeletal: no fluid collection, no pain - Psychiatric Psychiatric: mood/affect appropriate - Laboratory Findings CBC and BMP: 12/28/19 05:48 12/28/19 05:48 Abnormal Lab Findings: Abnormal Labs 12/27/19 12/27/19 12/27/19 07:54 07:54 07:54 RBC 5.41 H MCV 75 L MCH 25 L Lymph % (Auto) [place] % (Auto) 8.3 H Lymph # 1.1 L Potassium 3.3 L Carbon Dioxide Glucose 132 H POC Glucose 118 H Hemoglobin A1c Albumin 12/28/19 12/28/19 12/28/19 05:48 05:48 05:48 RBC 5.19 H MCV 75 L MCH 24 L Lymph % (Auto) 39.9 H [place] % (Auto) 8.6 H Lymph # Potassium 3.4 L Carbon Dioxide 21 L Glucose 129 H POC Glucose Hemoglobin A1c 6.8 H Albumin 3.8 L
--- NOTE | 2019-12-29 12:01 | Cat Scan Report ---
CTA neck with and without contrast CLINICAL HISTORY: Transient ischemic attack. Technique: Multiple contiguous postcontrast axial CT images of the neck were obtained at 0.63 mm inte rvals. 3 plane MIP reconstructions were produced. Precontrast localizing images were also performed. All CT scans at this location are performed using the CT dose reduction for ALARA by means of automat ed exposure control. FINDINGS: No previous exams available for comparison. There is no significant stenosis involving the left carotid arteries by NASCET criteria. There are foci of calcification involving the right carotid bifurcation. However, there is again no significant narrowing of by NASCET criteria. The vertebral arteries also demonstrate appropriate caliber without focal narrowing at. The arch of v essels are appear unremarkable. IMPRESSION: There is no significant stenosis involving the carotid or vertebral arteries by NASCET criteria. Signer Name: Josh Montoya MD Signed: 12/29/2019 11:57 AM Workstation Name: [id number]
--- NOTE | 2019-12-29 12:22 | Cat Scan Report ---
CTA head with and without IV contrast. CLINICAL HISTORY: Transient ischemic attack. Technique: Multiple contiguous postcontrast CT images of the head were obtained at 0.63 mm intervals. 3 plane MIP reconstructions were obtained. Precontrast localizing images were also performed. CT scan s at this location are performed using the CT dose reduction for [employer] by means of automated exposure control. FINDINGS: No previous exams available for comparison. There is no significant stenosis involving dist al internal carotid arteries at. A small focal prominence near the origin of the right ophthalmic art kiara which appears most consistent with infundibulum. Otherwise, there is no CTA evidence of intracran ial aneurysm. There is no focal narrowing involving the vertebral basilar system. 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 Otherwise, the proximal cerebral arteries demonstrate appropriat e caliber without stenosis. 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 Otherwise, the sinuses demonstrate appropriate contrast opacification. IMPRESSION: There is no significant focal stenosis involving intracranial vessels. Signer Name: Josh Montoya MD Signed: 12/29/2019 12:18 PM Workstation Name: [id number]
--- NOTE | 2019-12-29 12:59 | Discharge Summary ---
Providers - Providers Date of Admission: 12/27/19 14:13 Date of discharge: 12/29/19 Attending physician: LILIA GARCIA 12/27/19 19:59 Consult to Physician [CONS] Routine Comment: Consulting Provider: ZACH PICKERING Physician Instructions: Reason For Exam: TIA 12/28/19 12:46 Physical Therapy Evaluation and Treat [CONS] Routine Comment: Reason For Exam: Weakness Primary care physician: [employer] Hospitalization Condition: Fair Disposition: [facility]-01 TO HOME OR SELFCARE - Discharge Diagnoses (1) Hypokalemia Status: Acute (2) Right facial numbness Status: Acute (3) TIA (transient ischemic attack) Status: Acute (4) Depression Status: Chronic Qualifiers: Depression Type: unspecified Qualified Code(s): F32.9 - Major depressive disorder, single episode, unspecified (5) Hypertension Status: Chronic Qualifiers: Hypertension type: essential hypertension Qualified Code(s): I10 - Essential (primary) hypertension (6) Diabetes Status: Acute Core Measure Documentation - Palliative Care Palliative Care/ Comfort Measures: Not Applicable Exam - Constitutional Vitals: Temp Pulse Resp BP Pulse Ox 98.7 F 60 18 170/71 98 12/29/19 07:35 12/29/19 10:43 12/29/19 07:35 12/29/19 10:43 12/29/19 07:35 Plan Activity: advance as tolerated Diet: low fat, low cholesterol, low salt, diabetic Special Instructions: other (Check fingerstick glucose once daily) Plan of Treatment: 1.Follow up with PCP in 1 week. 2.Follow up with Neurologist in 1 week 3.Follow up with Psychiatrist as scheduled Follow up with: PRIMARY CARE, [Primary Care Provider] - 3-5 Days Prescriptions: Aspirin EC [Halfprin EC] 81 mg PO QDAY #30 tablet. AtorvaSTATin [Lipitor] 20 mg PO QHS #30 tablet
[2019-12-29 14:13] LABS: Chol/HDL Ratio 2.76 %
[2019-12-29 15:09] VITALS: BP 161/69
== END 2019-12-29 16:36 | disposition home or self-care (01) ==
LOC: ED 06:54 → 2B-ACE 14:13
PROVIDERS: ADMIT Internal Medicine; ATTEND Internal Medicine
DX: G45.9 Transient cerebral ischemic attack, unspecified (principal); E87.6 Hypokalemia; F41.8 Other specified anxiety disorders; I10 Essential (primary) hypertension; E11.9 Type 2 diabetes mellitus without complications; R20.0 Anesthesia of skin; Z71.89 Other specified counseling; Z79.899 Other long term (current) drug therapy; Z79.82 Long term (current) use of aspirin
CPT/HCPCS: 36415; 70450; 70496; 70498; 70551; 71045; 80048; 80053; 80061; 81001; 82962; 83036; 84484; 85025; 85610; 85670; 85730; 93005; 93010; 93306; 96372; 96374; 97116; 97161; 99284; A9270; G0378; J0360; J1644; J7030; Q9967

== ENCOUNTER 2019-12-30 10:14 | Emergency (ER) | payer MEDICARE ==
--- NOTE | 2019-12-30 11:39 | Emergency Department Report ---
HPI - General Chief Complaint: Weakness Time Seen by Provider: 12/30/19 11:02 - HPI HPI: 84-year-old -[place] female presents to the emergency department via EMS from home with the complaints of generalized weakness, feeling hot inside her body, and some type of an unresponsive episode. The patient was just discharged from this hospital yesterday after being here for a few days for a workup for stroke like symptoms and was diagnosed with a TIA. Patient says that she woke up this morning feeling very hot inside and became very anxious about this telling her family that she could be "dying." At one point the daughter tried to assist her in getting up from the bed but the patient was lethargic and unresponsive. This did not last long but the patient remained weak and told family that she was having trouble moving. The patient is in the emergency department and is currently awake and oriented. She has a past medical history of hypertension, anxiety and this TIA. ED Past Medical Hx - Past Medical History Previous Medical History?: Yes Hx Hypertension: Yes Hx CVA: No (TIA) Hx Psychiatric Treatment: Yes (Anxiety) - Surgical History Past Surgical History?: No - Social History Smoking Status: Former Smoker Substance Use Type: None - Medications Home Medications: Home Medications Medication Instructions Recorded Confirmed Last Taken Type FLUoxetine [PROzac] 20 mg PO QDAY 03/27/16 12/28/19 Unknown History Ascorbic Acid [Vitamin C] 500 mg PO QDAY 12/28/19 12/28/19 Unknown History Biotin [Biotin 1] 1 mg PO DAILY 12/28/19 12/28/19 Unknown History Calcium Carbonate/Vitamin D3 1 tab PO DAILY 12/28/19 12/28/19 Unknown History [Calcium 600-Vit D3 400 Tablet] Diclofenac 1% [Diclofenac 1% 100 gm TP QID 12/28/19 12/28/19 Unknown History topical gel] Latanoprost 0.005% 1 drop OU HS 12/28/19 12/28/19 Unknown History Linaclotide [Linzess] 145 mcg PO QDAY 12/28/19 12/28/19 Unknown History Magnesium 250 mg PO DAILY 12/28/19 12/28/19 Unknown History Multivitamin Tab W-MINERAL 1 each PO QD 12/28/19 12/28/19 Unknown History [Multiple Vitamin/Mineral (Theragran M)] NIFEdipine [Procardia Xl] 30 mg PO DAILY 12/28/19 12/28/19 Unknown History [place]-3 Fatty Acids/Fish Oil [Fish 1,000 mg PO DAILY 12/28/19 12/28/19 Unknown History Oil] Oseltamivir [Tamiflu] 75 mg PO BID 12/28/19 12/28/19 Unknown History Triamterene/Hydrochlorothiazid 1 cap PO DAILY 12/28/19 12/28/19 Unknown History [Triamterene-Hctz 37.5-25 mg Cp] Vit B Comp/C/Folic/Iron/Vit E 1 each PO DAILY 12/28/19 12/28/19 Unknown History [Vitamin B Complex Tablet] Aspirin EC [Halfprin EC] 81 mg PO QDAY #30 tablet. 12/29/19 Unknown Rx AtorvaSTATin [Lipitor] 20 mg PO QHS #30 tablet 12/29/19 Unknown Rx ED Review of Systems ROS: Stated complaint: WEAKNESS Other details as noted in HPI Comment: All other systems reviewed and negative Constitutional: weakness. denies: fever Eyes: denies: eye pain, vision change ENT: denies: ear pain, throat pain Respiratory: denies: cough, shortness of breath Cardiovascular: denies: chest pain, palpitations Gastrointestinal: denies: abdominal pain, vomiting Genitourinary: denies: dysuria, discharge Musculoskeletal: denies: back pain, arthralgia Skin: denies: rash, lesions Neurological: denies: headache, numbness Physical Exam - Physical Exam Vital Signs: Vital Signs 12/30/19 10:36 Temperature 98.1 F Pulse Rate 55 L Respiratory 18 Rate Blood Pressure 139/54 O2 Sat by Pulse 98 Oximetry Physical Exam: GENERAL: The patient is well-developed well-nourished. HEENT: Normocephalic. Atraumatic. Patient has moist mucous membranes. EYES: Extraocular motions are intact. Pupils equal and reactive to light bila terally. No nystagmus. NECK: Supple. Trachea is midline. CHEST/LUNGS: Clear to auscultation. There is no respiratory distress noted. HEART/CARDIOVASCULAR: Regular. There is no tachycardia. There is no murmur. ABDOMEN: Abdomen is soft, nontender. Patient has normal bowel sounds. There is no abdominal distention. SKIN:Skin is warm and dry. . NEURO: The patient is awake, alert, and oriented. The patient is cooperative. The patient has no focal neurologic deficits. Normal speech. Cranial nerves II through XII grossly intact. No pronator drift. MUSCULOSKELETAL: There is no tenderness or deformity. There is no limitation range of motion. There is no evidence of acute injury. ED Course Vital Signs 12/30/19 10:36 Temperature 98.1 F Pulse Rate 55 L Respiratory 18 Rate Blood Pressure 139/54 O2 Sat by Pulse 98 Oximetry ED Medical Decision Making - Lab Data Result diagrams: 12/30/19 11:36 12/30/19 11:36 - EKG Data -: EKG Interpreted by Me EKG shows normal: sinus rhythm, axis (left axis deviation), intervals, QRS complexes, ST-T waves Rate: bradycardia (52 bpm) - EKG Data When compared to previous EKG there are: no significant change Interpretation: unchanged when compared t (12/27/19) - Radiology Data Radiology results: report reviewed, image reviewed interpreted by me: Chest x-ray does not show any pleural effusions, pneumonia, pneumothorax, focal consolidation, or any other acute process. CT head/brain wo con INDICATION / CLINICAL INFORMATION: Altered mental status. TECHNIQUE: All CT scans at this location are performed using CT dose reduction for ALARA by means of automated exposure control. COMPARISON: Recent head CT and MRI. FINDINGS: Noncontrast head CT again demonstrates normal ventricles and sulci for the patient's age without definite acute or recent infarct, hemorrhage, mass-effect or midline shift. Mild periventricular hypodense small vessel ischemic disease. No abnormal extra axial fluid collections. Grossly normal posterior fossa with preserved basilar cisterns. Stable eye globes with bilateral cataract surgery. Intact calvarium. Normal scalp. Bilateral hearing aid devices. Numerous radiopaque dental material. Multilevel cervical spondylosis. IMPRESSION: No acute intracranial CT abnormality or significant interval change with age appropriate atrophy, mild microvascular changes and few other incidental findings again noted, as described. Please correlate. Signer Name: Misti Watts - Medical Decision Making This patient presents to the emergency department with a complaint what sounds like some generalized weakness. She has the complaint of feeling hot on the inside and had some type of a unresponsive episode. The daughter describes it as some seizure-like activity but says it was not a seizure. The patient has been awake and alert and oriented since she has been in the emergency department. On physical examination the patient does not have any focal, motor or sensory deficits and her cranial nerves are intact. A CT scan of the head without contrast was done that does not show any acute intracranial abnormalities. EKG did not show any signs of ST elevation IA. Her labs were unremarkable including CBC, metabolic panel, ammonia, troponin, TSH and urinalysis. Her vital signs stable throughout her ED course as well. The patient has been reevaluated multiple times for multiple hours and has remained awake and alert without any further seizure-like activity or unresponsive episodes and essentially it has been a benign ED course. The patient was seen ambulatory a few different times and appears stable. For all these reasons, as well as the fact that she was just discharged after having brain MRI, echocardiogram and carotid ultrasound, the patient appears safe for discharge home at this time. She's been instructed to follow-up with her primary care physician in the next few days, but to return to the emergency department immediately with any return of her symptoms, or with any acute distress. - Differential Diagnosis TIA, urinalysis, dysrhythmia, hypoglycemia, thyroid dysfunction Critical Care Time: No Critical care attestation.: If time is entered above; I have spent that time in minutes in the direct care of this critically ill patient, excluding procedure time. ED Disposition Clinical Impression: Unresponsive episode, Sensation of feeling hot Hypertension Qualifiers: Hypertension type: essential hypertension Qualified Code(s): I10 - Essential (primary) hypertension Disposition: TO HOME OR SELFCARE Is pt being admited?: No Condition: Stable Instructions: Hypertension (ED) Additional Instructions: Please follow up with your primary care physician in the next few days. Return to the emergency department with return or worsening of your symptoms, or with any acute distress. Referrals: NICKI ELLIS MD [Primary Care Provider] - 2-3 Days Time of Disposition: 15:01
[2019-12-30 11:51] LABS: Bilirubin,Urine NEG (Negative); Blood,Urine NEG (Negative); Color,Urine Yellow (Yellow); Mucus,Urine FEW /HPF; Protein,Urine <15 mg/dL mg/dL (Negative); Urobilinogen,Urine < 2.0 mg/dL (<2.0)
[2019-12-30 11:58] LABS: Basophils # (Auto) 0.1 K/mm3 (0.0-0.1); Basophils % (Auto) 1.4 % (0.0-1.8); Eosinophils # (Auto) 0.1 K/mm3 (0.0-0.4); Eosinophils % (Auto) 3.1 % (0.0-4.3); Hematocrit 38.9 % (30.3-42.9); Hemoglobin 12.7 gm/dl (10.1-14.3); Lymphocytes # (Auto) 1.2 K/mm3 (1.2-5.4); Lymphocytes % (Auto) 29.5 % (13.4-35.0); Mean Corpuscular HGB Conc 33 % (30-34); Mean Corpuscular Volume 75 fl (79-97); Monocytes # (Auto) 0.4 K/mm3 (0.0-0.8); Platelet Count 145 K/mm3 (140-440); Red Blood Count 5.17 M/mm3 (3.65-5.03)
[2019-12-30 12:42] LABS: Alanine Aminotransferase 15 units/L (7-56); Albumin 3.9 g/dL (3.9-5); BUN/Creatinine Ratio 20; Blood Urea Nitrogen 16 mg/dL (7-17); Calcium 9.6 mg/dL (8.4-10.2); Hemolysis Index 28
--- NOTE | 2019-12-30 13:02 | Cat Scan Report ---
CT head/brain wo con INDICATION / CLINICAL INFORMATION: Altered mental status. TECHNIQUE: All CT scans at this location are performed using CT dose reduction for ALARA by means of automated exposure control. COMPARISON: Recent head CT and MRI. FINDINGS: Noncontrast head CT again demonstrates normal ventricles and sulci for the patient's age wi thout definite acute or recent infarct, hemorrhage, mass-effect or midline shift. Mild periventricul ar hypodense small vessel ischemic disease. No abnormal extra axial fluid collections. Grossly norm al posterior fossa with preserved basilar cisterns. Stable eye globes with bilateral cataract surgery. Intact calvarium. Normal scalp. Bilateral heari ng aid devices. Numerous radiopaque dental material. Multilevel cervical spondylosis. IMPRESSION: No acute intracranial CT abnormality or significant interval change with age appropriate atrophy, mild microvascular changes and few other incidental findings again noted, as described. Ple ase correlate. Signer Name: Misti Watts Signed: 12/30/2019 12:57 PM Workstation Name: [id number]
--- NOTE | 2019-12-30 13:36 | XRay Report ---
CHEST 1 VIEW / XR chest 1V ap INDICATION: Altered mental status. COMPARISON: 12/27/2019 CXR. FINDINGS: Portable, single, frontal chest radiograph again demonstrates normal cardiomediastinal silh ouette and few right hilar lymph node calcifications. Clear lungs without pleural effusions or CHF. I ntact bones. CONCLUSION/IMPRESSION: No acute chest process or significant interval change, as described. Thank you for the opportunity to participate in this patient's care. Signer Name: Misti Watts Signed: 12/30/2019 1:31 PM Workstation Name: [id number]
[2019-12-30 15:02] VITALS: BP 162/68
== END 2019-12-30 15:18 | disposition home or self-care (01) ==
LOC: ED 10:14
DX: R46.4 Slowness and poor responsiveness (principal); R23.2 Flushing; I10 Essential (primary) hypertension; Z87.891 Personal history of nicotine dependence; Z79.899 Other long term (current) drug therapy
CPT/HCPCS: 36415; 70450; 71045; 80053; 81001; 82140; 84443; 84484; 85025; 93005; 93010

== ENCOUNTER 2020-01-18 20:42 | Emergency (ER) | payer MEDICARE ==
--- NOTE | 2020-01-18 22:18 | Emergency Department Report ---
Blank Doc - Documentation Documentation: 84-year-old female that presents with abdominal pain and headache. This initial assessment/diagnostic orders/clinical plan/treatment(s) is/are subject to change based on patient's health status, clinical progression and re- assessment by fellow clinical providers in the ED. Further treatment and workup at subsequent clinical providers discretion. Patient/guardians urged not to elope from the ED as their condition may be serious if not clinically assessed and managed. Initial orders include: 1- Patient sent to MAIN ED for further evaluation and treatment 2- labs 3- UA
[2020-01-18 23:32] LABS: Basophils # (Auto) 0.1 K/mm3 (0.0-0.1); Basophils % (Auto) 0.9 % (0.0-1.8); Eosinophils # (Auto) 0.1 K/mm3 (0.0-0.4); Eosinophils % (Auto) 1.5 % (0.0-4.3); Hematocrit 42.1 % (30.3-42.9); Hemoglobin 13.6 gm/dl (10.1-14.3); Lymphocytes # (Auto) 1.5 K/mm3 (1.2-5.4); Lymphocytes % (Auto) 25.4 % (13.4-35.0); Mean Corpuscular HGB Conc 32 % (30-34); Mean Corpuscular Volume 76 fl (79-97); Monocytes # (Auto) 0.6 K/mm3 (0.0-0.8); Monocytes % (Auto) 9.2 % (0.0-7.3); Platelet Count 151 K/mm3 (140-440); Red Blood Count 5.56 M/mm3 (3.65-5.03)
[2020-01-18 23:57] LABS: Albumin 4.3 g/dL (3.9-5); Calcium 10.1 mg/dL (8.4-10.2)
[2020-01-19] MEDS ORDERED: POTASSIUM CHLORIDE ER 20 MEQ TAB PO ONE (01:59)
--- NOTE | 2020-01-19 02:05 | Emergency Department Report ---
HPI - General Chief Complaint: Abdominal Pain Time Seen by Provider: 01/18/20 22:16 - HPI HPI: Room 5 The patient is an 84-year-old female present with a chief complaint of "smelling fumes in my house." When asked what made her come to the emergency department the patient states she has been smelling fumes in her house. When asked for how long she states she does not know how long but is been less than 1 month. Patient states it smells like "gas fumes and stuff like that." Patient otherwise denies complaints Location: [See above] Duration: [See above] Quality: [See above] Severity: [See above] Timing: [See above] Context: [See above] Modifying factors: [See above] Associated signs and symptoms: [see above] Mode of Transportation: [the pt is not driving] ED Past Medical Hx - Past Medical History Previous Medical History?: Yes Hx Hypertension: Yes Hx Psychiatric Treatment: Yes (Anxiety, depression) - Surgical History Past Surgical History?: No - Family History Family history: no significant - Social History Smoking Status: Never Smoker Substance Use Type: None - Medications Home Medications: Home Medications Medication Instructions Recorded Confirmed Last Taken Type FLUoxetine [PROzac] 20 mg PO QDAY 03/27/16 12/28/19 Unknown History Ascorbic Acid [Vitamin C] 500 mg PO QDAY 12/28/19 12/28/19 Unknown History Biotin [Biotin 1] 1 mg PO DAILY 12/28/19 12/28/19 Unknown History Calcium Carbonate/Vitamin D3 1 tab PO DAILY 12/28/19 12/28/19 Unknown History [Calcium 600-Vit D3 400 Tablet] Diclofenac 1% [Diclofenac 1% 100 gm TP QID 12/28/19 12/28/19 Unknown History topical gel] Latanoprost 0.005% 1 drop OU HS 12/28/19 12/28/19 Unknown History Linaclotide [Linzess] 145 mcg PO QDAY 12/28/19 12/28/19 Unknown History Magnesium 250 mg PO DAILY 12/28/19 12/28/19 Unknown History Multivitamin Tab W-MINERAL 1 each PO QD 12/28/19 12/28/19 Unknown History [Multiple Vitamin/Mineral (Theragran M)] NIFEdipine [Procardia Xl] 30 mg PO DAILY 12/28/19 12/28/19 Unknown History [place]-3 Fatty Acids/Fish Oil [Fish 1,000 mg PO DAILY 12/28/19 12/28/19 Unknown History Oil] Oseltamivir [Tamiflu] 75 mg PO BID 12/28/19 12/28/19 Unknown History Triamterene/Hydrochlorothiazid 1 cap PO DAILY 12/28/19 12/28/19 Unknown History [Triamterene-Hctz 37.5-25 mg Cp] Vit B Comp/C/Folic/Iron/Vit E 1 each PO DAILY 12/28/19 12/28/19 Unknown History [Vitamin B Complex Tablet] Aspirin EC [Halfprin EC] 81 mg PO QDAY #30 tablet. 12/29/19 Unknown Rx AtorvaSTATin [Lipitor] 20 mg PO QHS #30 tablet 12/29/19 Unknown Rx ED Review of Systems ROS: Stated complaint: FELIX/STOMACH PAIN Other details as noted in HPI Constitutional: no symptoms reported Eyes: denies: eye pain ENT: denies: throat pain Respiratory: no symptoms reported Cardiovascular: denies: chest pain Endocrine: no symptoms reported Gastrointestinal: denies: abdominal pain Genitourinary: denies: dysuria Musculoskeletal: denies: back pain Neurological: denies: headache Physical Exam - Physical Exam Vital Signs: Vital Signs 01/18/20 21:37 Temperature 98.0 F Pulse Rate 66 Respiratory 15 Rate Blood Pressure 141/71 O2 Sat by Pulse 97 Oximetry Physical Exam: GENERAL: The patient is well-developed well-nourished female lying on stretcher not appear to be in acute distress. [] HEENT: Normocephalic. Atraumatic. Extraocular motions are intact. Patient has moist mucous membranes. NECK: Supple. Trachea midline CHEST/LUNGS: Clear to auscultation. There is no respiratory distress noted. HEART/CARDIOVASCULAR: Regular. There is no tachycardia. There is no gallop rub or murmur. ABDOMEN: Abdomen is soft, nontender. Patient has normal bowel sounds. There is no abdominal distention. SKIN: There is no rash. There is no edema. There is no diaphoresis. NEURO: The patient is awake, alert, and oriented. The patient is cooperative. The patient has no focal neurologic deficits. The patient has normal speech MUSCULOSKELETAL: There is no evidence of acute injury. ED Course Vital Signs 01/18/20 21:37 Temperature 98.0 F Pulse Rate 66 Respiratory 15 Rate Blood Pressure 141/71 O2 Sat by Pulse 97 Oximetry ED Medical Decision Making - Lab Data Result diagrams: 01/18/20 23:07 01/18/20 23:07 Laboratory Tests 01/18/20 01/18/20 01/19/20 23:07 23:07 02:26 WBC 6.1 RBC 5.56 H Hgb 13.6 Hct 42.1 MCV 76 L MCH 24 L MCHC 32 RDW 15.0 Plt Count 151 Lymph % (Auto) 25.4 [place] % (Auto) 9.2 H Eos % (Auto) 1.5 Baso % (Auto) 0.9 Lymph # 1.5 [place] # 0.6 Eos # 0.1 Baso # 0.1 Seg Neutrophils % 63.0 Seg Neutrophils # 3.8 ABG pH 7.404 ABG pCO2 41.7 ABG pO2 77.3 L ABG HCO3 25.5 ABG O2 Saturation 96.1 ABG O2 Content 17.8 ABG Base Excess 0.6 ABG Hemoglobin 13.4 ABG Carboxyhemoglobin 1.3 ABG Methemoglobin 0.6 Oxyhemoglobin 94.3 L FiO2 21 Sodium 142 Potassium 3.3 L Chloride 98.5 Carbon Dioxide 22 Anion Gap 25 BUN 31 H Creatinine 1.2 Estimated GFR 52 BUN/Creatinine Ratio 26 Glucose 108 H Calcium 10.1 Total Bilirubin 0.90 AST 19 ALT 12 Alkaline Phosphatase 56 Total Protein 7.8 Albumin 4.3 Albumin/Globulin Ratio 1.2 Lipase 32 - Differential Diagnosis Carbon monoxide poisoning, Critical care attestation.: If time is entered above; I have spent that time in minutes in the direct care of this critically ill patient, excluding procedure time. ED Disposition Clinical Impression: Hypokalemia Disposition: DC-01 TO HOME OR SELFCARE Is pt being admited?: No Does the pt Need Aspirin: No Condition: Stable Instructions: Abdominal Pain (ED) Additional Instructions: Return to the emergency department should you develop worsening symptoms, inability to tolerate food or liquids, high fever or any other concerns Referrals: NICKI ELLIS MD [Primary Care Provider] - 3-5 Days Time of Disposition: 03:35
[2020-01-19 02:32] LABS: ABG Base Excess 0.6 mmol/L (-2.0-3.0); ABG HCO3 25.5 mmol/L (20.0-26.0); ABG Methemoglobin 0.6 % (0.0-1.5); ABG Oxygen Saturation 96.1 % (95.0-99.0); ABG PCO2 41.7 mm Hg; ABG PH 7.404 pH Units (7.350-7.450); ABG PO2 77.3 mm Hg (80.0-90.0)
[2020-01-19 09:23] VITALS: BP 124/58
[2020-01-19 09:42] LABS: Bilirubin,Urine NEG (Negative); Blood,Urine NEG (Negative); Color,Urine Yellow (Yellow); Mucus,Urine FEW /HPF; Protein,Urine <15 mg/dL mg/dL (Negative); Urobilinogen,Urine < 2.0 mg/dL (<2.0)
== END 2020-01-19 10:15 | disposition home or self-care (01) ==
LOC: ED 20:42
DX: E87.6 Hypokalemia (principal); I10 Essential (primary) hypertension; F32.89 Other specified depressive episodes; F41.9 Anxiety disorder, unspecified; Z79.899 Other long term (current) drug therapy
CPT/HCPCS: 36415; 80053; 81001; 82803; 83690; 85025; 87086

== ENCOUNTER 2020-12-27 11:39 | Emergency (ER) | payer MEDICARE ==
--- NOTE | 2020-12-27 11:45 | Event Note ---
ED Screening Note ED Screening Note: got dizzy in shower lowered herself down hr 56 on arrival no pronotor or facial weakness ambulatory This initial assessment/diagnostic orders/clinical plan/treatment(s) is/are subject to change based on patients health status, clinical progression and re- assessment by fellow clinical providers in the ED. Further treatment and workup at subsequent clinical providers discretion. Patient/guardian urged not to elope from the ED as their condition may be serious if not clinically assessed and managed. Initial orders include: ct labs/ua ekg
--- NOTE | 2020-12-27 12:24 | XRay Report ---
CHEST 2 VIEWS INDICATION / CLINICAL INFORMATION: weakness. FINDINGS: SUPPORT DEVICES: None. HEART / MEDIASTINUM: No significant abnormality. LUNGS / PLEURA: No significant pulmonary or pleural abnormality. No pneumothorax. ADDITIONAL FINDINGS: No significant additional findings. IMPRESSION: 1. No acute findings. Signer Name: Salvador Bridges MD Signed: 12/27/2020 12:20 PM Workstation Name: [id number]
[2020-12-27 12:43] LABS: Basophils # (Auto) 0.1 K/mm3 (0.0-0.1); Basophils % (Auto) 2.2 % (0.0-1.8); Eosinophils # (Auto) 0.1 K/mm3 (0.0-0.4); Eosinophils % (Auto) 1.5 % (0.0-4.3); Hematocrit 38.5 % (30.3-42.9); Hemoglobin 12.6 gm/dl (10.1-14.3); Lymphocytes # (Auto) 1.1 K/mm3 (1.2-5.4); Lymphocytes % (Auto) 16.4 % (13.4-35.0); Mean Corpuscular HGB Conc 33 % (30-34); Mean Corpuscular Volume 77 fl (79-97); Monocytes # (Auto) 0.4 K/mm3 (0.0-0.8); Monocytes % (Auto) 5.9 % (0.0-7.3); Platelet Count 147 K/mm3 (140-440); Red Blood Count 5.04 M/mm3 (3.65-5.03); Red Cell Distribution Width 15.5 % (13.2-15.2)
[2020-12-27 12:52] LABS: INR 1.06 (0.87-1.13); Partial Thromboplastin Time 24.9 Sec. (24.2-36.6)
[2020-12-27 13:06] LABS: Creatine Kinase MB 2.5 ng/mL (0.0-4.0)
[2020-12-27 13:09] LABS: Alanine Aminotransferase 10 units/L (7-56); BUN/Creatinine Ratio 14; Blood Urea Nitrogen 14 mg/dL (7-17); Calcium 9.2 mg/dL (8.4-10.2); Hemolysis Index 3
--- NOTE | 2020-12-27 13:56 | Emergency Department Report ---
ED General Adult HPI - General Chief complaint: Syncope Stated complaint: PASSED OUT PUI?: No Time Seen by Provider: 12/27/20 11:42 Source: patient, RN notes reviewed, old records reviewed Mode of arrival: Ambulatory Limitations: No Limitations - History of Present Illness Initial comments: The patient was evaluated in the emergency department for symptoms described in the history of present illness. He/she was evaluated in the context of the global COVID-19 pandemic, which necessitated consideration that the patient might be at risk for infection with the virus that causes COVID-19. Institutional protocols and algorithms that pertain to the evaluation of patients at risk for COVID-19 are in a state of rapid change based on information released by regulatory bodies including the CDC and federal and state organizations. These policies and algorithms were followed during the patient's care in the emergency department. Please note that these policies, procedures and recommendations changed on a rapid basis. Cardiology: [facility] cardiology the patient is an 85-year-old female. The patient presents to the ER with a complaint of painless almost passing out while in the shower. Patient reports that she was in her usual state of health, and when she got into the shower today, turned on the border, and experienced a sensation of almost passing out. However, she did not pass out. She denies physical pain. She denies urinary symptoms. She denies chest pain, shortness of breath, travel, surgery, DVT and pulmonary embolism risk factors. Patient had a CT angiogram of her head and neck last year which was negative for significant vascular disease. She had an MRI of her brain which was negative for acute findings. Apparently, she had an echocardiogram last year, and her eyeglass lens grinder office, which demonstrated an ejection fraction of 65%. Outpatient medications include nifedipine, Risperdal, meloxicam, Pepcid. They also include multivitamins. Patient states that she is back to her baseline at this time, and she has no complaints, that she would like to go home. -: Sudden Consistency: now resolved Improves with: none Worsens with: none Associated Symptoms: denies other symptoms - Related Data Home Medications Medication Instructions Recorded Confirmed Last Taken FLUoxetine [PROzac] 20 mg PO QDAY 03/27/16 12/28/19 Unknown Ascorbic Acid [Vitamin C] 500 mg PO QDAY 12/28/19 12/28/19 Unknown Biotin [Biotin 1] 1 mg PO DAILY 12/28/19 12/28/19 Unknown Calcium Carbonate/Vitamin D3 1 tab PO DAILY 12/28/19 12/28/19 Unknown [Calcium 600-Vit D3 400 Tablet] Diclofenac 1% [Diclofenac 1% 100 gm TP QID 12/28/19 12/28/19 Unknown topical gel] Latanoprost 0.005% 1 drop OU HS 12/28/19 12/28/19 Unknown Linaclotide [Linzess] 145 mcg PO QDAY 12/28/19 12/28/19 Unknown Magnesium 250 mg PO DAILY 12/28/19 12/28/19 Unknown Multivitamin Tab W-MINERAL 1 each PO QD 12/28/19 12/28/19 Unknown [Multiple Vitamin/Mineral (Theragran M)] NIFEdipine [Procardia Xl] 30 mg PO DAILY 12/28/19 12/28/19 Unknown Crum Lynne-3 Fatty Acids/Fish Oil [Fish 1,000 mg PO DAILY 12/28/19 12/28/19 Unknown Oil] Triamterene/Hydrochlorothiazid 1 cap PO DAILY 12/28/19 12/28/19 Unknown [Triamterene-Hctz 37.5-25 mg Cp] Vit B Comp/C/Folic/Iron/Vit E 1 each PO DAILY 12/28/19 12/28/19 Unknown [Vitamin B Complex Tablet] Previous Rx's Medication Instructions Recorded Last Taken Type Aspirin EC [Halfprin EC] 81 mg PO QDAY #30 tablet. 12/29/19 Unknown Rx AtorvaSTATin [Lipitor] 20 mg PO QHS #30 tablet 12/29/19 Unknown Rx Allergies Allergy/AdvReac Type Severity Reaction Status Date / Time No Known Allergies Allergy Verified 12/27/20 11:39 ED Review of Systems ROS: Stated complaint: PASSED OUT Other details as noted in HPI Comment: All other systems reviewed and negative Cardiovascular: other (Near syncope). denies: chest pain Gastrointestinal: denies: hematemesis, melena, hematochezia Genitourinary: denies: frequency, hematuria, discharge Musculoskeletal: denies: back pain Neurological: denies: headache ED Past Medical Hx - Past Medical History Hx Hypertension: Yes Hx CVA: No (TIA) Hx Psychiatric Treatment: Yes (Anxiety, depression) - Social History Smoking Status: Never Smoker Substance Use Type: None - Medications Home Medications: Home Medications Medication Instructions Recorded Confirmed Last Taken Type FLUoxetine [PROzac] 20 mg PO QDAY 03/27/16 12/28/19 Unknown History Ascorbic Acid [Vitamin C] 500 mg PO QDAY 12/28/19 12/28/19 Unknown History Biotin [Biotin 1] 1 mg PO DAILY 12/28/19 12/28/19 Unknown History Calcium Carbonate/Vitamin D3 1 tab PO DAILY 12/28/19 12/28/19 Unknown History [Calcium 600-Vit D3 400 Tablet] Diclofenac 1% [Diclofenac 1% 100 gm TP QID 12/28/19 12/28/19 Unknown History topical gel] Latanoprost 0.005% 1 drop OU HS 12/28/19 12/28/19 Unknown History Linaclotide [Linzess] 145 mcg PO QDAY 12/28/19 12/28/19 Unknown History Magnesium 250 mg PO DAILY 12/28/19 12/28/19 Unknown History Multivitamin Tab W-MINERAL 1 each PO QD 12/28/19 12/28/19 Unknown History [Multiple Vitamin/Mineral (Theragran M)] NIFEdipine [Procardia Xl] 30 mg PO DAILY 12/28/19 12/28/19 Unknown History Crum Lynne-3 Fatty Acids/Fish Oil [Fish 1,000 mg PO DAILY 12/28/19 12/28/19 Unknown History Oil] Triamterene/Hydrochlorothiazid 1 cap PO DAILY 12/28/19 12/28/19 Unknown History [Triamterene-Hctz 37.5-25 mg Cp] Vit B Comp/C/Folic/Iron/Vit E 1 each PO DAILY 12/28/19 12/28/19 Unknown History [Vitamin B Complex Tablet] Aspirin EC [Halfprin EC] 81 mg PO QDAY #30 tablet. 12/29/19 Unknown Rx AtorvaSTATin [Lipitor] 20 mg PO QHS #30 tablet 12/29/19 Unknown Rx ED Physical Exam - General Limitations: No Limitations General appearance: alert, in no apparent distress, other (Visual acuity intact to finger counting, color perception, reading at a close distance) - Head Head exam: Present: atraumatic, normocephalic - Eye Eye exam: Present: normal appearance, PERRL, EOMI. Absent: nystagmus - ENT ENT exam: Present: normal exam, normal orophraynx, mucous membranes moist, normal external ear exam - Neck Neck exam: Present: normal inspection, full ROM. Absent: tenderness, meningismus - Respiratory Respiratory exam: Present: normal lung sounds bilaterally. Absent: respiratory distress, wheezes, rales, rhonchi, stridor, decreased breath sounds - Cardiovascular Cardiovascular Exam: Present: normal rhythm, bradycardia, normal heart sounds. Absent: tachycardia, irregular rhythm, systolic murmur, diastolic murmur, rubs, gallop - GI/Abdominal GI/Abdominal exam: Present: soft, normal bowel sounds. Absent: distended, tenderness, guarding, rebound, rigid, pulsatile mass - Extremities Exam Extremities exam: Present: normal inspection, full ROM, other (2+ pulses noted in the bilateral upper and lower extremities. There is no palpable cord. negative Homans sign. Muscular compartments are soft. The pelvis is stable.). Absent: calf tenderness - Back Exam Back exam: Present: normal inspection, full ROM. Absent: tenderness, CVA tenderness (R), CVA tenderness (L), paraspinal tenderness, vertebral tenderness - Neurological Exam Neurological exam: Present: alert, oriented X3, normal gait, other (There is no facial droop. The tongue is midline. Extraocular movements are intact bilaterally. There is 5 out of 5 strength in bilateral upper and lower extremities. Sensation is intact to light touch bilateral upper and lower extremities. There is no past-pointing. There is no pronator drift.). Absent: motor sensory deficit - Psychiatric Psychiatric exam: Present: normal affect, normal mood - Skin Skin exam: Present: warm, dry, intact, normal color. Absent: rash ED Course Vital Signs 12/27/20 11:41 Temperature 98.3 F Pulse Rate 56 L Respiratory 18 Rate Blood Pressure 165/68 O2 Sat by Pulse 96 Oximetry ED Medical Decision Making - Lab Data Result diagrams: 12/27/20 11:52 12/27/20 11:52 Vital Signs 12/27/20 11:41 Temperature 98.3 F Pulse Rate 56 L Respiratory 18 Rate Blood Pressure 165/68 O2 Sat by Pulse 96 Oximetry Lab Results 12/27/20 12/27/20 12/27/20 Range/Units 11:52 11:52 11:52 WBC 6.8 (4.5-11.0) K/mm3 RBC 5.04 H (3.65-5.03) M/mm3 Hgb 12.6 (10.1-14.3) gm/dl Hct 38.5 (30.3-42.9) % MCV 77 L (79-97) fl MCH 25 L (28-32) pg MCHC 33 (30-34) % RDW 15.5 H (13.2-15.2) % Plt Count 147 (140-440) K/mm3 Lymph % (Auto) 16.4 (13.4-35.0) % Amador % (Auto) 5.9 (0.0-7.3) % Eos % (Auto) 1.5 (0.0-4.3) % Baso % (Auto) 2.2 H (0.0-1.8) % Lymph # (Auto) 1.1 L (1.2-5.4) K/mm3 Amador # (Auto) 0.4 (0.0-0.8) K/mm3 Eos # (Auto) 0.1 (0.0-0.4) K/mm3 Baso # (Auto) 0.1 (0.0-0.1) K/mm3 Seg Neutrophils % 74.0 H (40.0-70.0) % Seg Neutrophils # 5.0 (1.8-7.7) K/mm3 PT 13.7 (12.2-14.9) Sec. INR 1.06 (0.87-1.13) APTT 24.9 (24.2-36.6) Sec. Sodium 141 (137-145) mmol/L Potassium 4.0 (3.6-5.0) mmol/L Chloride 104.7 (98-107) mmol/L Carbon Dioxide 29 (22-30) mmol/L Anion Gap 11 mmol/L BUN 14 (7-17) mg/dL Creatinine 1.0 (0.6-1.2) mg/dL Estimated GFR > 60 ml/min BUN/Creatinine Ratio 14 % Glucose 138 H (65-100) mg/dL Calcium 9.2 (8.4-10.2) mg/dL Magnesium 2.10 (1.7-2.3) mg/dL Total Bilirubin 0.50 (0.1-1.2) mg/dL AST 13 (5-40) units/L ALT 10 (7-56) units/L Alkaline Phosphatase 74 (35-129) units/L Total Creatine Kinase 105 (30-135) units/L CK-MB (CK-2) 2.5 (0.0-4.0) ng/mL CK-MB (CK-2) Rel Index 2.3 (0-4) Troponin T < 0.010 (0.00-0.029) ng/mL Total Protein 7.3 (6.3-8.2) g/dL Albumin 4.0 (3.9-5) g/dL Albumin/Globulin Ratio 1.2 % TSH (0.270-4.200) mlU/mL 12/27/20 Range/Units 11:52 WBC (4.5-11.0) K/mm3 RBC (3.65-5.03) M/mm3 Hgb (10.1-14.3) gm/dl Hct (30.3-42.9) % MCV (79-97) fl MCH (28-32) pg MCHC (30-34) % RDW (13.2-15.2) % Plt Count (140-440) K/mm3 Lymph % (Auto) (13.4-35.0) % Amador % (Auto) (0.0-7.3) % Eos % (Auto) (0.0-4.3) % Baso % (Auto) (0.0-1.8) % Lymph # (Auto) (1.2-5.4) K/mm3 Amador # (Auto) (0.0-0.8) K/mm3 Eos # (Auto) (0.0-0.4) K/mm3 Baso # (Auto) (0.0-0.1) K/mm3 Seg Neutrophils % (40.0-70.0) % Seg Neutrophils # (1.8-7.7) K/mm3 PT (12.2-14.9) Sec. INR (0.87-1.13) APTT (24.2-36.6) Sec. Sodium (137-145) mmol/L Potassium (3.6-5.0) mmol/L Chloride (98-107) mmol/L Carbon Dioxide (22-30) mmol/L Anion Gap mmol/L BUN (7-17) mg/dL Creatinine (0.6-1.2) mg/dL Estimated GFR ml/min BUN/Creatinine Ratio % Glucose (65-100) mg/dL Calcium (8.4-10.2) mg/dL Magnesium (1.7-2.3) mg/dL Total Bilirubin (0.1-1.2) mg/dL AST (5-40) units/L ALT (7-56) units/L Alkaline Phosphatase (35-129) units/L Total Creatine Kinase (30-135) units/L CK-MB (CK-2) (0.0-4.0) ng/mL CK-MB (CK-2) Rel Index (0-4) Troponin T (0.00-0.029) ng/mL Total Protein (6.3-8.2) g/dL Albumin (3.9-5) g/dL Albumin/Globulin Ratio % TSH 1.680 (0.270-4.200) mlU/mL - EKG Data -: EKG Interpreted by Me EKG shows normal: sinus rhythm Rate: bradycardia - EKG Data When compared to previous EKG there are: no significant change Interpretation: unchanged when compared t 12/27/20 15:14 Sinus rhythm, bradycardia, 50 bpm, normal axis, normal intervals, poor R wave progression. Abnormal EKG. Not a STEMI. Unchanged from prior EKG, with the exception of resolution of left axis deviation from prior EKG from 2020 - Radiology Data Radiology results: report reviewed, image reviewed Noncontrast CT scan of the brain is negative for acute findings. X-ray of the chest is negative for acute findings. - Medical Decision Making Differential diagnosis, including but not limited to: Orthostasis, vagal event, structural cardiac disease Assessment and plan: 85-year-old female with episode of near syncope, painless, while in the shower. Patient has been observed in this ER for hours, without tachycardia, tachypnea, hypoxia. The patient denies DVT and pulmonary embolism risk factors, and she is low risk by Wells criteria. All this patient is hard of hearing, she is alert and oriented, with a GCS of 15, nonfocal motor exam, and walks with a steady gait. There is no past-pointing, no pronator drift, and a negative Romberg examination. There is normal [id number]. Contacted covering cardiology, Iva Borrego, who is working currently with patient's primary eyeglass lens grinder, Dr. Farris Apparently, this patient has been having chronic dizziness for years. Her bradycardia is also chronic. Cardiology did indeed confirm that the patient had an unremarkable echocardiogram recently. She also had a negative MRI last year, and unremarkable CT angiogram of her head and neck. Patient has endorsed a desire to be discharged to follow-up as an outpatient. She is very concerned about being admitted to the hospital, out of concern for COVID-19, slip and fall, delirium, DVT, and hospital-acquired diarrhea. Aforementioned cardiology team has arranged for patient to be followed up in the office next week, on Thursday, in [place], at 1050 in the morning. Therefore, through shared decision-making, patient and I agreed to discharge her, to follow-up with her cardiology group next week. Critical care attestation.: If time is entered above; I have spent that time in minutes in the direct care of this critically ill patient, excluding procedure time. ED Disposition Clinical Impression: Near syncope, Bradycardia Disposition: DC-01 TO HOME OR SELFCARE Is pt being admited?: No Does the pt Need Aspirin: No Condition: Stable Instructions: Bradycardia, Adult, Near-Syncope Additional Instructions: Do not drive or operate motor vehicles for the next 6 months, or until cleared to do so by her primary care doctor or eyeglass lens grinder. Please follow-up with your eyeglass lens grinder, next week, Thursday, at 1050 in the morning, at the [facility] office. Please continue current blood pressure medications. Please return to the emergency room right away with new pain, worsened pain, migration of pain, projectile vomiting, change in mental status, confusion, inability to tolerate liquid feeds, new, worsened or different symptoms not present on the initial emergency room evaluation. Referrals: CHRISTIAN FARRIS MD [Staff Physician] - 01/01/21 10:50 am [facility], [facility] [Provider Group] - 01/01/21 10:50 am
--- NOTE | 2020-12-27 14:45 | Cat Scan Report ---
CT head without contrast HISTORY: dizziness. TECHNIQUE: Axial imaging performed from the skull apex through the skull base without the use of con trast. All CT scans at this location are performed using CT dose reduction for ALARA by means of aut omated exposure control. COMPARISON: CT head from 12/30/2019 FINDINGS: Parenchyma: No acute intracranial hemorrhage or parenchymal abnormality. Ventricles: There is mild diffuse brain atrophy with commensurate ventricular enlargement which is l ikely age appropriate. Soft tissues: Soft tissues including the orbits appear normal. Bones: No acute osseous abnormality. Sinuses: Sinuses and mastoid air cells are clear. IMPRESSION: No acute abnormality. Signer Name: Danie Brown MD Signed: 12/27/2020 2:40 PM Workstation Name: [id number]
[2020-12-27 15:52] VITALS: BP 160/55
== END 2020-12-27 16:01 | disposition home or self-care (01) ==
LOC: ED 11:39
DX: R55 Syncope and collapse (principal); R00.1 Bradycardia, unspecified; I10 Essential (primary) hypertension; F41.9 Anxiety disorder, unspecified; F32.9 Major depressive disorder, single episode, unspecified; Z79.899 Other long term (current) drug therapy
CPT/HCPCS: 36415; 70450; 71046; 80053; 82550; 82553; 83735; 84443; 84484; 85025; 85610; 85730; 93005

== ENCOUNTER 2021-05-22 10:15 | Outpatient (CLI) | payer MEDICARE ==
--- NOTE | 2021-05-22 11:32 | Cat Scan Report ---
CT CHEST WITHOUT CONTRAST INDICATION / CLINICAL INFORMATION: ABNORMAL spot on lung. TECHNIQUE: Axial CT images were obtained through the chest without contrast. All CT scans at this location are p erformed using CT dose reduction for ALARA by means of automated exposure control. COMPARISON: 12/27/2020 FINDINGS: HEART: No significant abnormality. THORACIC AORTA: No significant abnormality. MEDIASTINUM and JOHN: Benign calcified granulomas identified within both hilum, right greater than le ft. LUNGS: No acute air space or interstitial disease. Several subcentimeter calcified granulomas are pr esent within the right lower lobe PLEURA: No significant pleural effusion. No pneumothorax. ADDITIONAL FINDINGS: None. UPPER ABDOMEN: No significant abnormality. SKELETAL SYSTEM: No significant abnormality. IMPRESSION: No acute intrathoracic abnormality. Multiple calcified granulomas identified bilaterally Signer Name: Salvador Bridges MD Signed: 05/22/2021 11:27 AM Workstation Name: [id number]
== END 2021-05-22 10:16 | disposition home or self-care (01) ==
LOC: CT 10:15
PROVIDERS: ATTEND Internal Medicine
DX: R91.1 Solitary pulmonary nodule (principal); R91.8 Other nonspecific abnormal finding of lung field
CPT/HCPCS: 71250

== ENCOUNTER 2022-03-03 14:27 | Emergency (ER) | payer MEDICARE ==
[2022-03-03] MEDS ORDERED: MECLIZINE 25 MG TAB PO ONE (14:57)
--- NOTE | 2022-03-03 15:31 | Cat Scan Report ---
CT head/brain wo con INDICATION: Stroke symptoms, dizziness. TECHNIQUE: Routine CT head. All CT scans at this location are performed using CT dose reduction for A SHARAD by means of automated exposure control. COMPARISON: November 2020 FINDINGS: Intracranial: Amaro-white matter differentiation is maintained. No intracranial hemorrhage. No extra a xial collection. No hydrocephalus. No herniation. Periventricular and centrum semiovale white matter hypoattenuation most consistent with sequela of chronic microvascular disease. Sinuses: Paranasal sinuses and mastoid air cells are essentially clear. Orbits: Globes are intact. Calvarium: No acute fracture. IMPRESSION: 1. No acute intracranial abnormality. Signer Name: Efraín Hansen MD Signed: 03/03/2022 3:27 PM Workstation Name: [id number]
--- NOTE | 2022-03-03 15:34 | Emergency Department Report ---
ED Dizziness HPI - General Chief Complaint: Dizziness Stated Complaint: VERTIGO Time Seen by Provider: 03/03/22 14:41 Source: patient, old records reviewed Mode of arrival: Ambulatory Limitations: No Limitations - History of Present Illness Initial Comments: 86-year-old female the past medical history of hypertension, vertigo, anxiety, depression, pacemaker, and mild dementia presents to the hospital complaining of worsening dizziness and unsteady gait since waking up at 10:30 AM. Patient has had a history of dizziness secondary to vertigo for several months. She was referred to a specialist by her PMD but cannot recall if it was a neurologist or ENT doctor. Patient took her last 2 tablets of meclizine yesterday without much improvement and woke up this morning feeling like she was unsteady and going to fall with ambulation. For the past 1 week she has been having intermittent jerking movements of her right leg. Daughter states No other neuro complaints reported. No pain reported. - Related Data Home Medications Medication Instructions Recorded Confirmed Last Taken FLUoxetine [PROzac] 20 mg PO QDAY 03/27/16 12/28/19 Unknown Ascorbic Acid [Vitamin C] 500 mg PO QDAY 12/28/19 12/28/19 Unknown Biotin [Biotin 1] 1 mg PO DAILY 12/28/19 12/28/19 Unknown Calcium Carbonate/Vitamin D3 1 tab PO DAILY 12/28/19 12/28/19 Unknown [Calcium 600-Vit D3 400 Tablet] Diclofenac 1% [Diclofenac 1% 100 gm TP QID 12/28/19 12/28/19 Unknown topical gel] Latanoprost 0.005% 1 drop OU HS 12/28/19 12/28/19 Unknown Linaclotide [Linzess] 145 mcg PO QDAY 12/28/19 12/28/19 Unknown Magnesium 250 mg PO DAILY 12/28/19 12/28/19 Unknown Multivitamin Tab W-MINERAL 1 each PO QD 12/28/19 12/28/19 Unknown [Multiple Vitamin/Mineral (Theragran M)] NIFEdipine [Procardia Xl] 30 mg PO DAILY 12/28/19 12/28/19 Unknown Severance-3 Fatty Acids/Fish Oil [Fish 1,000 mg PO DAILY 12/28/19 12/28/19 Unknown Oil] Triamterene/Hydrochlorothiazid 1 cap PO DAILY 12/28/19 12/28/19 Unknown [Triamterene-Hctz 37.5-25 mg Cp] Vit B Comp/C/Folic/Iron/Vit E 1 each PO DAILY 12/28/19 12/28/19 Unknown [Vitamin B Complex Tablet] Previous Rx's Medication Instructions Recorded Last Taken Type Aspirin EC [Halfprin EC] 81 mg PO QDAY #30 tablet. 12/29/19 Unknown Rx AtorvaSTATin [Lipitor] 20 mg PO QHS #30 tablet 12/29/19 Unknown Rx Meclizine [Antivert] 25 mg PO TID PRN #60 tab 03/03/22 Unknown Rx Allergies Allergy/AdvReac Type Severity Reaction Status Date / Time No Known Allergies Allergy Verified 12/27/20 11:39 ED Review of Systems ROS: Stated complaint: VERTIGO Other details as noted in HPI Comment: All other systems reviewed and negative ED Past Medical Hx - Past Medical History Hx Hypertension: Yes Hx CVA: No (TIA) Hx Psychiatric Treatment: Yes (Anxiety, depression) Additional medical history: vertigo - Surgical History Past Surgical History?: Yes Additional Surgical History: Pacemaker - Social History Smoking Status: Never Smoker - Medications Home Medications: Home Medications Medication Instructions Recorded Confirmed Last Taken Type FLUoxetine [PROzac] 20 mg PO QDAY 03/27/16 12/28/19 Unknown History Ascorbic Acid [Vitamin C] 500 mg PO QDAY 12/28/19 12/28/19 Unknown History Biotin [Biotin 1] 1 mg PO DAILY 12/28/19 12/28/19 Unknown History Calcium Carbonate/Vitamin D3 1 tab PO DAILY 12/28/19 12/28/19 Unknown History [Calcium 600-Vit D3 400 Tablet] Diclofenac 1% [Diclofenac 1% 100 gm TP QID 12/28/19 12/28/19 Unknown History topical gel] Latanoprost 0.005% 1 drop OU HS 12/28/19 12/28/19 Unknown History Linaclotide [Linzess] 145 mcg PO QDAY 12/28/19 12/28/19 Unknown History Magnesium 250 mg PO DAILY 12/28/19 12/28/19 Unknown History Multivitamin Tab W-MINERAL 1 each PO QD 12/28/19 12/28/19 Unknown History [Multiple Vitamin/Mineral (Theragran M)] NIFEdipine [Procardia Xl] 30 mg PO DAILY 12/28/19 12/28/19 Unknown History Severance-3 Fatty Acids/Fish Oil [Fish 1,000 mg PO DAILY 12/28/19 12/28/19 Unknown History Oil] Triamterene/Hydrochlorothiazid 1 cap PO DAILY 12/28/19 12/28/19 Unknown History [Triamterene-Hctz 37.5-25 mg Cp] Vit B Comp/C/Folic/Iron/Vit E 1 each PO DAILY 12/28/19 12/28/19 Unknown History [Vitamin B Complex Tablet] Aspirin EC [Halfprin EC] 81 mg PO QDAY #30 tablet. 12/29/19 Unknown Rx AtorvaSTATin [Lipitor] 20 mg PO QHS #30 tablet 12/29/19 Unknown Rx Meclizine [Antivert] 25 mg PO TID PRN #60 tab 03/03/22 Unknown Rx ED Physical Exam - General Limitations: No Limitations - Other Other exam information: General: No acute distress Head: Atraumatic Eyes: normal appearance ENT: Moist mucous membranes, no nystagmus, vertigo not reproducible with head movement Neck: Normal appearance, no midline tenderness Chest: Clear to auscultation bilaterally CV: Regular rate and rhythm Abdomen: Soft, normal bowel sounds, nontender, nondistended, no rebound or guarding Back: Normal inspection Extremity: Normal inspection, full range of motion Neuro: Alert O x 3, no facial asymmetry, speech clear, no gross motor sensory deficit Psych: Appropriate behavior Skin: No rash ED Course Vital Signs 03/03/22 03/03/22 03/03/22 14:31 14:54 14:55 Temperature 98.5 F Pulse Rate 60 Pulse Rate [ Lying] Pulse Rate [ Sitting] Pulse Rate [ Standing] Respiratory 18 Rate Blood Pressure 171/80 162/74 Blood Pressure [Lying] Blood Pressure [Sitting] Blood Pressure [Standing] O2 Sat by Pulse 98 98 100 Oximetry 03/03/22 03/03/22 03/03/22 15:01 15:25 15:31 Temperature Pulse Rate Pulse Rate [ Lying] Pulse Rate [ Sitting] Pulse Rate [ Standing] Respiratory Rate Blood Pressure 162/74 162/74 162/74 Blood Pressure [Lying] Blood Pressure [Sitting] Blood Pressure [Standing] O2 Sat by Pulse 97 97 97 Oximetry 03/03/22 03/03/22 03/03/22 15:45 16:00 16:15 Temperature Pulse Rate Pulse Rate [ Lying] Pulse Rate [ Sitting] Pulse Rate [ Standing] Respiratory Rate Blood Pressure 179/80 171/86 193/78 Blood Pressure [Lying] Blood Pressure [Sitting] Blood Pressure [Standing] O2 Sat by Pulse 96 95 98 Oximetry 03/03/22 17:03 Temperature Pulse Rate Pulse Rate [ 60 Lying] Pulse Rate [ 63 Sitting] Pulse Rate [ 65 Standing] Respiratory Rate Blood Pressure Blood Pressure 162/78 [Lying] Blood Pressure 149/75 [Sitting] Blood Pressure 158/75 [Standing] O2 Sat by Pulse Oximetry ED Medical Decision Making - Lab Data Result diagrams: 03/03/22 15:34 03/03/22 15:34 Lab Results 03/03/22 03/03/22 03/03/22 Range/Units 15:34 15:34 15:34 WBC 4.5 (4.5-11.0) K/mm3 RBC 5.11 H (3.65-5.03) M/mm3 Hgb 12.7 (10.1-14.3) gm/dl Hct 39.0 (30.3-42.9) % MCV 76 L (79-97) fl MCH 25 L (28-32) pg MCHC 33 (30-34) % RDW 15.4 H (13.2-15.2) % Plt Count 158 (140-440) K/mm3 Lymph % (Auto) 32.8 (13.4-35.0) % Cross % (Auto) 9.1 H (0.0-7.3) % Eos % (Auto) 3.3 (0.0-4.3) % Baso % (Auto) 1.0 (0.0-1.8) % Lymph # (Auto) 1.5 (1.2-5.4) K/mm3 Cross # (Auto) 0.4 (0.0-0.8) K/mm3 Eos # (Auto) 0.1 (0.0-0.4) K/mm3 Baso # (Auto) 0.0 (0.0-0.1) K/mm3 Seg Neutrophils % 53.8 (40.0-70.0) % Seg Neutrophils # 2.4 (1.8-7.7) K/mm3 PT 14.6 (12.2-14.9) Sec. INR 1.03 (0.87-1.13) APTT 26.4 (24.2-36.6) Sec. Thrombin Time 17.8 (15.1-19.6) Sec. Sodium (137-145) mmol/L Potassium (3.6-5.0) mmol/L Chloride (98-107) mmol/L Carbon Dioxide (22-30) mmol/L Anion Gap mmol/L BUN (7-17) mg/dL Creatinine (0.6-1.2) mg/dL Estimated GFR ml/min BUN/Creatinine Ratio % Glucose (65-100) mg/dL Calcium (8.4-10.2) mg/dL Magnesium (1.7-2.3) mg/dL Total Bilirubin (0.1-1.2) mg/dL AST (5-40) units/L ALT (7-56) units/L Alkaline Phosphatase (35-129) units/L Total Creatine Kinase 78 (30-135) units/L CK-MB (CK-2) 1.9 (0.0-4.0) ng/mL CK-MB (CK-2) Rel Index 2.4 (0-4) Troponin T < 0.010 (0.00-0.029) ng/mL Total Protein (6.3-8.2) g/dL Albumin (3.9-5) g/dL Albumin/Globulin Ratio % 03/03/22 03/03/22 Range/Units 15:34 15:34 WBC (4.5-11.0) K/mm3 RBC (3.65-5.03) M/mm3 Hgb (10.1-14.3) gm/dl Hct (30.3-42.9) % MCV (79-97) fl MCH (28-32) pg MCHC (30-34) % RDW (13.2-15.2) % Plt Count (140-440) K/mm3 Lymph % (Auto) (13.4-35.0) % Cross % (Auto) (0.0-7.3) % Eos % (Auto) (0.0-4.3) % Baso % (Auto) (0.0-1.8) % Lymph # (Auto) (1.2-5.4) K/mm3 Cross # (Auto) (0.0-0.8) K/mm3 Eos # (Auto) (0.0-0.4) K/mm3 Baso # (Auto) (0.0-0.1) K/mm3 Seg Neutrophils % (40.0-70.0) % Seg Neutrophils # (1.8-7.7) K/mm3 PT (12.2-14.9) Sec. INR (0.87-1.13) APTT (24.2-36.6) Sec. Thrombin Time (15.1-19.6) Sec. Sodium 142 (137-145) mmol/L Potassium 3.9 (3.6-5.0) mmol/L Chloride 102.9 (98-107) mmol/L Carbon Dioxide 25 (22-30) mmol/L Anion Gap 18 mmol/L BUN 17 (7-17) mg/dL Creatinine 0.8 (0.6-1.2) mg/dL Estimated GFR > 60 ml/min BUN/Creatinine Ratio 21 % Glucose 73 (65-100) mg/dL Calcium 9.2 (8.4-10.2) mg/dL Magnesium 2.20 (1.7-2.3) mg/dL Total Bilirubin 0.40 (0.1-1.2) mg/dL AST 14 (5-40) units/L ALT 11 (7-56) units/L Alkaline Phosphatase 75 (35-129) units/L Total Creatine Kinase (30-135) units/L CK-MB (CK-2) (0.0-4.0) ng/mL CK-MB (CK-2) Rel Index (0-4) Troponin T (0.00-0.029) ng/mL Total Protein 7.5 (6.3-8.2) g/dL Albumin 4.1 (3.9-5) g/dL Albumin/Globulin Ratio 1.2 % - EKG Data -: EKG Interpreted by Me (Atrial rhythm ) EKG shows normal: sinus rhythm, ST-T waves (No STEMI) Rate: normal (60) - Radiology Data Radiology results: report reviewed Radiology report reviewed. No acute findings on imaging test below CT head, CT angio head, CT angio neck - Medical Decision Making 86-year-old female presents to the hospital complaining of worsening and chronic dizziness with unsteady gait since this morning. Case was discussed with daughter at the bedside after completion of ED work-up. She states that her mother has been seen by both ENT and neurology as outpatient. She is on a unknown anxiety medication also takes Prozac. Daughter states that she has likely been only taking the meclizine intermittently as as opposed to every 8 hours and was low on the medication prior to running out. She also has been h aving right-sided tremors x1 month. Side effect profile of Prozac includes tremors. Imaging and ED work-up unremarkable and patient is feeling better after p.o. meclizine. No signs of posterior circulation stroke on exam or imaging. She is ambulating at her baseline and denies feeling unsteady. Patient will be discharged with a meclizine refill and encouraged to follow-up with her neurologist regarding her right-sided tremors and worsening dizziness symptoms Critical Care Time: No Critical care attestation.: If time is entered above; I have spent that time in minutes in the direct care of this critically ill patient, excluding procedure time. ED Disposition Clinical Impression: Vertigo, Tremor Disposition: 01 HOME / SELF CARE / HOMELESS Is pt being admited?: No Does the pt Need Aspirin: No Condition: Stable Instructions: Tremor, Dizziness Additional Instructions: Take the medication as prescribed. Follow-up with your neurologist. Return if symptoms worsen as indicated by your discharge instructions. Prescriptions: Meclizine [Antivert] 25 mg PO TID PRN #60 tab PRN Reason: Vertigo Referrals: NICKI ELLIS MD [Primary Care Provider] - 3-5 Days your, neurologist [Other] - 3-5 Days Time of Disposition: 17:41 - Assessment Assessment Interval: Baseline - Level of Consciousness 1a. Level of Consciousness: alert/keenly responsive - LOC Questions 1b. LOC Questions: answers both correctly - LOC Command 1c. LOC Commands: performs tasks correctly - Best Gaze 2. Best Gaze: normal - Visual 3. Visual: no visual loss - Facial Palsy 4. Facial Palsy: normal symmetrical movement - Motor Arm 5a. Motor Arm Left: no drift 5b. Motor Arm Right: no drift - Motor Leg 6a. Motor Leg Left: no drift 6b. Motor Leg Right: no drift - Limb Ataxia 7. Limb Ataxia: absent - Sensory 8. Sensory: normal - Best Language 9. Best Language: no aphasia - Dysarthria 10. Dysarthria: normal - Extinction and Inattention 11. Extinction/Inattention: no abnormality - Scoring Total Score: 0 Stroke Severity: No Stroke Symptoms
--- NOTE | 2022-03-03 15:48 | Cat Scan Report ---
CT angio head, CT angio neck HISTORY: stroke sx, dizziness OMNI 350 100 ML COMPARISON: None. TECHNIQUE: CTA of the neck and head is performed after IV contrast. 3-D/MIP reformats were postproces sed. Percentage stenosis is determined by direct quantitative measurements of diseased internal acosta tid artery diameter compared with normal distal internal carotid artery reference segments or by crit eria similar to NASCET where applicable. All CT scans at this location are performed using CT dose re duction for ALARA by means of automated exposure control. FINDINGS: CTA NECK: Poor contrast opacification of the proximal cervical carotid and vertebral arteries. Aortic arch: No significant abnormality. Cervical vertebral arteries: No occlusion or hemodynamically significant stenosis. Common Carotid arteries: Mild atherosclerosis in the right carotid bulb. No occlusion or hemodynamica lly significant stenosis. Internal carotid arteries: Mild atherosclerosis of the proximal right internal carotid artery. There is hypoattenuation seen within the left proximal internal carotid artery which is thought to be flow artifact. No occlusion or hemodynamically significant stenosis. CTA HEAD: Intracranial internal carotid arteries: Atherosclerosis in the carotid siphons without occlusion or s ignificant stenosis. Anterior cerebral arteries: No occlusion or significant stenosis. Middle cerebral arteries: No occlusion or significant stenosis. Intracranial vertebral arteries: No occlusion or significant stenosis. Basilar artery: No occlusion or significant stenosis. Posterior cerebral arteries: No occlusion or significant stenosis. No aneurysm. Additional findings: None. IMPRESSION: 1. CTA NECK: No occlusion or significant stenosis of the carotid or vertebral arteries. 2. CTA HEAD: No occlusion or significant stenosis of the major intracranial vasculature. Informed Dr. Olivares at 243 Signer Name: Efraín Hansen MD Signed: 03/03/2022 3:43 PM Workstation Name: [id number]
[2022-03-03 16:26] LABS: Creatine Kinase MB 1.9 ng/mL (0.0-4.0)
[2022-03-03 16:27] LABS: Alanine Aminotransferase 11 units/L (7-56); Albumin 4.1 g/dL (3.9-5); BUN/Creatinine Ratio 21; Blood Urea Nitrogen 17 mg/dL (7-17); Calcium 9.2 mg/dL (8.4-10.2); Hemolysis Index 10
[2022-03-03 16:41] LABS: Eosinophils # (Auto) 0.1 K/mm3 (0.0-0.4); Eosinophils % (Auto) 3.3 % (0.0-4.3); Hemoglobin 12.7 gm/dl (10.1-14.3); Lymphocytes # (Auto) 1.5 K/mm3 (1.2-5.4); Lymphocytes % (Auto) 32.8 % (13.4-35.0); Mean Corpuscular HGB Conc 33 % (30-34); Mean Corpuscular Volume 76 fl (79-97); Monocytes # (Auto) 0.4 K/mm3 (0.0-0.8); Monocytes % (Auto) 9.1 % (0.0-7.3); Platelet Count 158 K/mm3 (140-440); Red Blood Count 5.11 M/mm3 (3.65-5.03); Red Cell Distribution Width 15.4 % (13.2-15.2)
[2022-03-03 16:55] LABS: INR 1.03 (0.87-1.13); Partial Thromboplastin Time 26.4 Sec. (24.2-36.6); Thrombin Time 17.8 Sec. (15.1-19.6)
[2022-03-03 17:08] VITALS: BP 162/78
--- NOTE | 2022-03-04 11:52 | Electrocardiograph Report ---
[facility] Test Date: 2022-03-03 Test Time: 14:33:17 Pat Name: NELLY CAVANAUGH Department: Room: Gender: F Student Ambassador: JIMI : [id number] Requested By: VICKI GONSALES Order Number: [id number] Reading MD: Mark Adan Measurements Intervals [place] Rate: 60 P: RI: 155 QRS: 64 QRSD: 85 T: 35 QT: 424 QTc: 424 Interpretive Statements Atrial-paced rhythm Low voltage, precordial leads No previous ECG available for comparison Electronically Signed On 03-04-2022 11:51:37 EDT by Mark Adan
== END 2022-03-03 18:06 | disposition home or self-care (01) ==
LOC: ED 14:27
DX: R42 Dizziness and giddiness (principal); R25.1 Tremor, unspecified; I10 Essential (primary) hypertension; F41.9 Anxiety disorder, unspecified; Z79.899 Other long term (current) drug therapy
CPT/HCPCS: 36415; 70450; 70496; 70498; 80053; 82550; 82553; 83735; 84484; 85025; 85610; 85670; 85730; 93005; 99284; Q9967